=== PATIENT | female | born 1945 | race Caucasian/White ===

== ENCOUNTER 2018-02-01 10:46 | Observation (INO) | payer BC, MEDICARE ==
--- NOTE | 2018-02-01 11:31 | ED ---
General Adult HPI - General Chief complaint: Chest Pain Stated complaint: Chest Pain Source: patient Mode of arrival: wheelchair - History of Present Illness Initial comments: Dictation was produced using [employer] dictation software. please excuse any grammatical, word or spelling errors. Chief Complaint: 72-year-old female past medical history of coronary artery disease, dyslipidemia, hypertension presents after episode of chest pain today. History of Present Illness: Patient states she was exerting herself. 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 She was walking when she began feeling pain in her legs. She did experience severe pain in her chest that was crushing in nature. She states that she also became short of breath and experienced diaphoresis pressure taken aspirin and nitroglycerin with improvement of symptoms. Patient also had a similar but milder episode 2 weeks ago. Patient does have cardiac history. She states that she had Holter monitor for several days for concerns of tachycardia dysrhythmia however she said her Holter monitor was negative. The ROS documented in this emergency department record has been reviewed and confirmed by me. Those systems with pertinent positive or negative responses have been documented in the HPI. All other systems are other negative and/or noncontributory. - Related Data Home Medications Medication Instructions Recorded Confirmed Albuterol Sulfate [Proair Hfa] 2 puff INHALATION RT-Q6H PRN 02/01/18 02/01/18 Aspirin EC [Ecotrin] 325 mg PO DAILY PRN 02/01/18 02/01/18 Aspirin EC [Ecotrin] 325 mg PO HS 02/01/18 02/01/18 Losartan/Hydrochlorothiazide 1 tab PO HS 02/01/18 02/01/18 [Losartan-Hctz 100-25 mg Tab] Metoprolol Succinate [Toprol Xl] 100 mg PO HS 02/01/18 02/01/18 Nitroglycerin Sl Tabs [Nitrostat] 0.4 mg SUBLINGUAL Q5M PRN 02/01/18 02/01/18 Allergies Allergy/AdvReac Type Severity Reaction Status Date / Time Latex, Natural Rubber Allergy Rash/Hives Verified 02/01/18 11:56 Review of Systems ROS Statement: Those systems with pertinent positive or pertinent negative responses have been documented in the HPI. ROS Other: All systems not noted in ROS Statement are negative. Past Medical History Past Medical History: Coronary Artery Disease (CAD), Hyperlipidemia, Hypertension History of Any Multi-Drug Resistant Organisms: None Reported Additional Past Surgical History / Comment(s): CAROTID RIGHT SIDE, BRIDGE VASCULAR 2004 Past Psychological History: No Psychological Hx Reported Smoking Status: Former smoker Past Alcohol Use History: Occasional Past Drug Use History: None Reported General Exam - General Exam Comments Initial Comments: PHYSICAL EXAM: General Impression: Alert and oriented x3, not in acute distress HEENT: Normocephalic atraumatic, extra-ocular movements intact, pupils equal and reactive to light bilaterally, mucous membranes moist. Cardiovascular: Heart regular rate and rhythm, S1&S2 audible, no murmurs, rubs or gallops Chest: Lungs clear to auscultation bilaterally, no rhonchi, no wheeze, no rales Abdomen: Bowel sounds present, abdomen soft, non-tender, non-distended, no organomegaly Musculoskeletal: Pulses present and equal in all extremities, no peripheral edema Motor: Power 5/5 bilaterally, no focal deficits noted Neurological: CN II-XII grossly intact, no focal motor or sensory deficits noted Skin: Intact with no visualized rashes Psych: Normal affect and mood Course Vital Signs 02/01/18 02/01/18 02/01/18 10:49 12:00 13:00 Temperature 98.4 F Pulse Rate 90 74 72 Respiratory 18 20 20 Rate Blood Pressure 187/84 167/72 182/72 O2 Sat by Pulse 96 99 99 Oximetry Medical Decision Making - Medical Decision Making ED course: 72-year-old female with clinical presentation concerning for acute coronary syndrome. Signs upon arrival shows blood pressure 187/84. Patient had concerning history of present illness. Chest pain was also relieved with nitroglycerin and aspirin.Laboratory evaluation obtained per it CBC unremarkable , coag panel unremarkable, chem panel is negative. Cardiac enzymes are negative. Chest x-ray shows no acute processes . Clinical presentation strongly suspicious for acute coronary syndrome. We'll start patient on heparin. Patient be admitted to selective care on heparin drip. EKG interpretation: Ventricular rate 87. No MI prolongation, no QTC prolongation , no ST or T-wave changes noted. Overall, this EKG is unremarkable - Lab Data Result diagrams: 02/01/18 11:00 02/01/18 11:00 Lab Results 02/01/18 02/01/18 02/01/18 Range/Units 11:00 11:00 11:00 WBC 8.6 (3.8-10.6) k/uL RBC 4.82 (3.80-5.40) m/uL Hgb 13.6 (11.4-16.0) gm/dL Hct 42.6 (34.0-46.0) % MCV 88.2 (80.0-100.0) fL MCH 28.2 (25.0-35.0) pg MCHC 32.0 (31.0-37.0) g/dL RDW 13.0 (11.5-15.5) % Plt Count 380 (150-450) k/uL Neutrophils % 66 % Lymphocytes % 24 % Monocytes % 5 % Eosinophils % 3 % Basophils % 1 % Neutrophils # 5.7 (1.3-7.7) k/uL Lymphocytes # 2.1 (1.0-4.8) k/uL Monocytes # 0.5 (0-1.0) k/uL Eosinophils # 0.2 (0-0.7) k/uL Basophils # 0.1 (0-0.2) k/uL PT (9.0-12.0) sec INR (<1.2) APTT (22.0-30.0) sec Sodium 141 (137-145) mmol/L Potassium 4.2 (3.5-5.1) mmol/L Chloride 102 (98-107) mmol/L Carbon Dioxide 28 (22-30) mmol/L Anion Gap 11 mmol/L BUN 16 (7-17) mg/dL Creatinine 0.80 (0.52-1.04) mg/dL Est GFR (CKD-EPI)AfAm 85 (>60 ml/min/1.73 sqM) Est GFR (CKD-EPI)NonAf 74 (>60 ml/min/1.73 sqM) Glucose 105 H (74-99) mg/dL Calcium 9.5 (8.4-10.2) mg/dL Magnesium 2.0 (1.6-2.3) mg/dL Total Bilirubin 0.7 (0.2-1.3) mg/dL AST 27 (14-36) U/L ALT 27 (9-52) U/L Alkaline Phosphatase 72 (38-126) U/L Total Creatine Kinase 121 (30-135) U/L CK-MB (CK-2) 1.1 (0.0-2.4) ng/mL CK-MB (CK-2) Rel Index 0.9 Troponin I <0.012 (0.000-0.034) ng/mL Total Protein 7.9 (6.3-8.2) g/dL Albumin 4.3 (3.5-5.0) g/dL 02/01/18 Range/Units 11:00 WBC (3.8-10.6) k/uL RBC (3.80-5.40) m/uL Hgb (11.4-16.0) gm/dL Hct (34.0-46.0) % MCV (80.0-100.0) fL MCH (25.0-35.0) pg MCHC (31.0-37.0) g/dL RDW (11.5-15.5) % Plt Count (150-450) k/uL Neutrophils % % Lymphocytes % % Monocytes % % Eosinophils % % Basophils % % Neutrophils # (1.3-7.7) k/uL Lymphocytes # (1.0-4.8) k/uL Monocytes # (0-1.0) k/uL Eosinophils # (0-0.7) k/uL Basophils # (0-0.2) k/uL PT 10.4 (9.0-12.0) sec INR 1.1 (<1.2) APTT 25.2 (22.0-30.0) sec Sodium (137-145) mmol/L Potassium (3.5-5.1) mmol/L Chloride (98-107) mmol/L Carbon Dioxide (22-30) mmol/L Anion Gap mmol/L BUN (7-17) mg/dL Creatinine (0.52-1.04) mg/dL Est GFR (CKD-EPI)AfAm (>60 ml/min/1.73 sqM) Est GFR (CKD-EPI)NonAf (>60 ml/min/1.73 sqM) Glucose (74-99) mg/dL Calcium (8.4-10.2) mg/dL Magnesium (1.6-2.3) mg/dL Total Bilirubin (0.2-1.3) mg/dL AST (14-36) U/L ALT (9-52) U/L Alkaline Phosphatase (38-126) U/L Total Creatine Kinase (30-135) U/L CK-MB (CK-2) (0.0-2.4) ng/mL CK-MB (CK-2) Rel Index Troponin I (0.000-0.034) ng/mL Total Protein (6.3-8.2) g/dL Albumin (3.5-5.0) g/dL Disposition Clinical Impression: ACS (acute coronary syndrome) Disposition: ADMITTED IP TO THIS HOSP Condition: Fair Referrals: Vaibhav Coleman Jr, [Primary Care Provider] - 1-2 days Decision Time: 13:43
[2018-02-01 11:34] LABS: Basophils # (A) 0.1 k/uL (0-0.2); Basophils % (A) 1 %; Eosinophils # (A) 0.2 k/uL (0-0.7); Eosinophils % (A) 3 %; HCT 42.6 % (34.0-46.0); HGB 13.6 gm/dL (11.4-16.0); Lymphocytes # (A) 2.1 k/uL (1.0-4.8); Lymphocytes % (A) 24 %; MCH 28.2 pg (25.0-35.0); MCV 88.2 fL (80.0-100.0); Mean Platelet Volume 6.3; Monocytes # (A) 0.5 k/uL (0-1.0); Monocytes % (A) 5 %; Neutrophils # (A) 5.7 k/uL (1.3-7.7); Neutrophils % (A) 66 %; Platelet Count 380 k/uL (150-450); RBC 4.82 m/uL (3.80-5.40); WBC 8.6 k/uL (3.8-10.6)
[2018-02-01 11:43] LABS: Albumin 4.3 g/dL (3.5-5.0); Calcium 9.5 mg/dL (8.4-10.2); Potassium 4.2 mmol/L (3.5-5.1); Total Bilirubin 0.7 mg/dL (0.2-1.3); Total Protein 7.9 g/dL (6.3-8.2)
[2018-02-01 11:54] LABS: Creatine Kinase 121 U/L (30-135)
[2018-02-01 12:07] LABS: Creatine Kinase MB 1.1 ng/mL (0.0-2.4); Troponin I <0.012 ng/mL (0.000-0.034)
--- NOTE | 2018-02-01 12:10 | XR ---
EXAMINATION TYPE: XR chest 2V DATE OF EXAM: 02/01/2018 COMPARISON: Chest x-ray October 19, 2011 HISTORY: Shortness of breath today per patient. Chest pain per order. TECHNIQUE: Frontal and lateral views of the chest are obtained. FINDINGS: There is improved inspiration on current study. There is chronic parenchymal change without suspicious new focal air space opacity, pleural effusion, or pneumothorax seen. Calcified 8 mm nodu le or granuloma lateral right upper lobe is redemonstrated. The cardiac silhouette size is within nor mal limits. Underlying scoliosis in the lumbar spine is present. Cholecystectomy clip is seen IMPRESSION: Improved inspiration without acute pulmonary process.
[2018-02-01 12:19] LABS: INR 1.1 (<1.2); Partial Thromboplastin Time 25.2 sec (22.0-30.0); Prothrombin Time 10.4 sec (9.0-12.0)
[2018-02-01] MEDS ORDERED: HEPARIN SODIUM,PORCINE 5,000 UNIT/ML 1 ML VIAL IV ONE (12:34)
[2018-02-01] MEDS ORDERED: HEPARIN SODIUM,PORCINE 5,000 UNIT/ML 1 ML VIAL IV PRN (12:34)
[2018-02-01] MEDS ORDERED: HEPARIN SOD,PORK IN 0.45% NACL 25,000 UNIT in 0.45% NACL 1 500ML.BAG IV SCH (12:45)
[2018-02-01] MEDS ORDERED: ALBUTEROL NEBULIZED 2.5 MG/3 ML INHALATION PRN (13:33)
[2018-02-01] MEDS ORDERED: NITROGLYCERIN SL TABS 0.4 MG TAB SUBLINGUAL PRN (13:33)
--- NOTE | 2018-02-01 13:33 | P.HPIM ---
History of Present Illness H&P Date: 02/01/18 Chief Complaint: Chest pain This is a pleasant 72-year-old white female, well-known to our practice. She describes an episode of chest pain possibly 2 weeks ago that was crushing pressure-like in quality. She said it lasted about a half hour on ON its own. She didn't have any nitroglycerin try. He informed me she had a stent and also has peripheral artery disease and a femorofemoral bypass. She sees Dr. Mendoza for cardiac care. She is not had a stress test was scheduled for several months ago. She came emergency room after having crushing chest pressure starting about 10 AM. In the emergency room the symptoms were relieved with nitroglycerin. He is complaining of minor headache now. She denies any significant shortness of breath, nausea, or vomiting. ER physician indicates no significant EKG changes. She is resting comfortably in the emergency room. Her and sister at bedside. Review of Systems All systems: negative Past Medical History Past Medical History: Coronary Artery Disease (CAD), Hyperlipidemia, Hypertension History of Any Multi-Drug Resistant Organisms: None Reported Additional Past Surgical History / Comment(s): Carotid endarterectomy, right, FEM-POP Bypass 2004 Past Psychological History: No Psychological Hx Reported Smoking Status: Former smoker Past Alcohol Use History: Occasional Past Drug Use History: None Reported Medications and Allergies Home Medications Medication Instructions Recorded Confirmed Type Albuterol Sulfate [Proair Hfa] 2 puff INHALATION RT-Q6H PRN 02/01/18 02/01/18 History Aspirin EC [Ecotrin] 325 mg PO DAILY PRN 02/01/18 02/01/18 History Aspirin EC [Ecotrin] 325 mg PO HS 02/01/18 02/01/18 History Losartan/Hydrochlorothiazide 1 tab PO HS 02/01/18 02/01/18 History [Losartan-Hctz 100-25 mg Tab] Metoprolol Succinate [Toprol Xl] 100 mg PO HS 02/01/18 02/01/18 History Nitroglycerin Sl Tabs [Nitrostat] 0.4 mg SUBLINGUAL Q5M PRN 02/01/18 02/01/18 History Allergies Allergy/AdvReac Type Severity Reaction Status Date / Time Latex, Natural Rubber Allergy Rash/Hives Verified 02/01/18 11:56 Physical Exam Vitals: Vital Signs Temp Pulse Resp BP Pulse Ox 02/01/18 13:00 72 20 182/72 99 02/01/18 12:00 74 20 167/72 99 02/01/18 10:49 98.4 F 90 18 187/84 96 Intake and Output 01/31/18 02/01/18 02/01/18 22:59 06:59 14:59 Other: Weight 92.986 kg GENERAL: Well-appearing, well-nourished and in no acute distress. sHe looks her age of 72. HEAD: Atraumatic, normocephalic. EYES: Pupils equal round and reactive to light, extraocular movements intact, sclera anicteric, conjunctiva are normal. ENT:nares patent, oropharynx clear without exudates. Moist mucous membranes. NECK: Normal range of motion, supple without lymphadenopathy or JVD, no thyromegaly LUNGS: Breath sounds clear to auscultation bilaterally and equal. No wheezes rales or rhonchi. HEART: Regular rate and rhythm without murmurs, rubs or gallops.S1S2 Normal ABDOMEN: Soft, nontender, normoactive bowel sounds. No guarding, no rebound. No masses appreciated. EXTREMITIES: Normal range of motion, no pitting or edema. No clubbing or cyanosis. NEUROLOGICAL: Cranial nerves II through XII grossly intact. Normal speech, normal gait. PSYCH: Normal mood, normal affect. SKIN: Warm, Dry, normal turgor, no rashes or lesions noted. Results CBC & Chem 7: 02/01/18 11:00 02/01/18 11:00 Labs: Abnormal Lab Results - Last 24 Hours (Table) 02/01/18 Range/Units 11:00 Glucose 105 H (74-99) mg/dL Thrombosis Risk Factor Assmnt - DVT/VTE Prophylaxis DVT/VTE Prophylaxis: Pharmacologic Prophylaxis ordered (IV heparin drip ordered by emergency room physician) Assessment and Plan (1) Unstable angina Current Visit: Yes Status: Acute Code(s): I20.0 - UNSTABLE ANGINA SNOMED Code(s): 0025892 (2) Chest pain Current Visit: Yes Status: Acute Code(s): R07.9 - CHEST PAIN, UNSPECIFIED SNOMED Code(s): 06303182 (3) Coronary arteriosclerosis Current Visit: Yes Status: Acute Code(s): I25.10 - ATHSCL HEART DISEASE OF [place] CORONARY ARTERY W/O ANG PCTRS SNOMED Code(s): 68957181 (4) H/O carotid endarterectomy Current Visit: Yes Status: Acute Code(s): Z98.890 - OTHER SPECIFIED POSTPROCEDURAL STATES SNOMED Code(s): 595138653 (5) History of femoropopliteal bypass Current Visit: Yes Status: Acute Code(s): Z98.890 - OTHER SPECIFIED POSTPROCEDURAL STATES SNOMED Code(s): 209363373 (6) Hypertension Current Visit: Yes Status: Acute Code(s): I10 - ESSENTIAL (PRIMARY) HYPERTENSION SNOMED Code(s): 72421615 (7) Hyperlipidemia Current Visit: Yes Status: Acute Code(s): E78.5 - HYPERLIPIDEMIA, UNSPECIFIED SNOMED Code(s): 05732938 Plan: I will consult cardiology for stress test versus cardiac catheterization. Serial CPKs and troponins. She will remain on heparin drip per the ER physician. She will be reevaluated in the next 24 hours, depending on her laboratory studies and symptoms.
[2018-02-01] MEDS ORDERED: ASPIRIN 81 MG PO STA (13:35)
[2018-02-01] MEDS ORDERED: SODIUM CHLORIDE 0.9% 1,000 ML IV STA (13:35)
[2018-02-01] MEDS ORDERED: NALOXONE 0.4 MG/ML 1 ML VIAL IV PRN (13:39)
[2018-02-01 19:16] LABS: Creatine Kinase MB 1.1 ng/mL (0.0-2.4); Troponin I 0.02 ng/mL (0.000-0.034)
[2018-02-01] MEDS ORDERED: ACETAMINOPHEN TAB 325 MG TAB PO STA (19:59)
[2018-02-01] MEDS: LOSARTAN-HCTZ 50-12.5 MG 1 EACH TAB PO SCH (20:08)
[2018-02-01] MEDS: METOPROLOL SUCCINATE (ER) 100 MG TAB.ER.24H PO SCH (20:08)
[2018-02-01 23:09] LABS: Creatine Kinase MB 0.9 ng/mL (0.0-2.4); Troponin I 0.012 ng/mL (0.000-0.034)
[2018-02-02 02:54] LABS: Cholesterol 203 mg/dL (<200); HDL Cholesterol 46 mg/dL (40-60); LDL Cholesterol,Calculated 135 mg/dL (0-99); Triglycerides 109 mg/dL (<150)
--- NOTE | 2018-02-02 09:24 | P.CRDCN ---
History of Present Illness History of present illness: This is Dr. Chahal dictating a consult on this patient The patient was interviewed and examined by me IMPRESSION / ASSESSMENT: Recurrent palpitations Diagnosed with atrial fibrillation but no clear-cut ECG confirmation Bone Diabetes Hypertension Dyslipidemia Carotid artery disease significant, status post endarterectomy, vision refusing statins all along Peripheral vascular disease, patient refusing statins PLAN: Detailed discussion with the patient regarding the following #1. I would definitely consider implantation of a loop monitor to diagnosed atrial fibrillation. If she has atrial fibrillation then she should be anticoagulated with either Coumadin or one of the new agents 2. Statin therapy to get her LDL closer to 50 mg per deciliter 3. Outpatient cardiac evaluation with Dr. Mendoza whose primary project systems engineer 4. 2 baby aspirins instead of a full aspirin Continue antihypertensive therapy 2-D echo and Doppler study today Her sister wants her to have a loop monitor while she is in the hospital HPI Patient started experiencing pain in the right leg. She has known PVD. Subsequently she started experiencing palpitations and the discomfort from the leg started rising upwards into her belly and chest and she became very scared and came to the hospital. The episode of palpitations lasted longer than usual for about 10-15 minutes. She has a presumptive diagnosis of atrial fibrillation without any ECG confirmation, per the patient. I have seen her many years back and an event monitor was prescribed and this did not show any episodes of atrial fibrillation at that time Resting comfortably in bed no chest pain ROS: No fever chills or rigors, no cough, phlegm or expectoration, no nausea, vomiting or diarrhea, no hematuria, dysuria, no musculoskeletal complaints, no strokes or seizures, no skin lesions. EXAMINATION Afebrile 97.8F pulse rate in the 60s normal respirations blood pressure 101/59 and 153/65 mmHg Breath sounds are clear no rhonchi no crackles Heart sounds are normal normal S1 normal S2 regular Extended is warm no edema Abdomen soft REVIEW OF LABS, ECG Hemoglobin 13.6 H normal cardiac enzymes normal 3 LDL 135 to close to 203 Has refused to take statins because she has read up a lot of things about statins! Chest x-ray no pulmonary pathology reported by radiology Twelve-lead ECG shows sinus rhythm with normal cardiac intervals narrow QRS heart rate 87 beats a minute Past Medical History Past Medical History: Atrial Fibrillation, Asthma, Coronary Artery Disease (CAD) , CVA/TIA, Hyperlipidemia, Hypertension, Osteoarthritis (OA), Pneumonia, Vascular Disorder Additional Past Medical History / Comment(s): PAD, totally occluded L caratid artery-had L caratid endartectomy done twice and R leg femoral bypass, chronic low back pain and R leg pain with ambulation, scoliosis, recent R toe fracture and tendons damage across R foot, R ear skin cancer removed, gout bilateral feet , hemorrhoids, hypoglycemia. History of Any Multi-Drug Resistant Organisms: None Reported Past Surgical History: Appendectomy, Cholecystectomy Additional Past Surgical History / Comment(s): R caratid endartectomy done twice , R femoral bypass, PCI with stent to LAD, colonoscopy, R ear skin cancer removal. Past Anesthesia/Blood Transfusion Reactions: Motion Sickness Smoking Status: Former smoker - Past Family History Father Additional Family Medical History / Comment(s): Father of ALS at the age of 67yrs. Mother Family Medical History: Congestive Heart Failure (CHF), Myocardial Infarction ( AR) Additional Family Medical History / Comment(s): Mother of a AR at the age of 71yrs. Medications and Allergies Home Medications Medication Instructions Recorded Confirmed Type Albuterol Sulfate [Proair Hfa] 2 puff INHALATION RT-Q6H PRN 02/01/18 02/01/18 History Aspirin EC [Ecotrin] 325 mg PO DAILY PRN 02/01/18 02/01/18 History Aspirin EC [Ecotrin] 325 mg PO HS 02/01/18 02/01/18 History Losartan/Hydrochlorothiazide 1 tab PO HS 02/01/18 02/01/18 History [Losartan-Hctz 100-25 mg Tab] Metoprolol Succinate [Toprol Xl] 100 mg PO HS 02/01/18 02/01/18 History Nitroglycerin Sl Tabs [Nitrostat] 0.4 mg SUBLINGUAL Q5M PRN 02/01/18 02/01/18 History Allergies Allergy/AdvReac Type Severity Reaction Status Date / Time Latex, Natural Rubber Allergy Rash/Hives Verified 02/01/18 11:56 Physical Exam Vitals: Vital Signs Temp Pulse Pulse Resp BP BP Pulse Ox 02/02/18 04:00 97.8 F 67 16 153/65 97 02/02/18 00:00 18 02/01/18 23:59 98.4 F 62 18 101/59 95 02/01/18 19:58 18 02/01/18 19:35 98.6 F 75 18 134/77 94 L 02/01/18 18:11 98.0 F 77 18 156/74 93 L 02/01/18 16:00 78 18 02/01/18 15:15 97.6 F 78 18 190/82 97 02/01/18 14:56 98.3 F 77 18 156/67 100 02/01/18 13:00 72 20 182/72 99 02/01/18 12:00 74 20 167/72 99 02/01/18 10:49 98.4 F 90 18 187/84 96 Intake and Output 02/01/18 02/02/18 02/02/18 22:59 06:59 14:59 Intake Total 551 550 Balance 551 550 Intake: IV 210 550 Heparin Sod,Pork in 0.45% 60 NaCl 25,000 unit In 0.45 % NaCl 1 500ml.bag @ 10. 75 UNITS/KG/HR 19.99 mls/ hr IV .Q24H [facility] Rx#: [id number] Sodium Chloride 0.9% 1, 150 550 000 ml @ 50 mls/hr IV . Q20H [facility] Rx#:[id number] Intake, IV Titration 141 Amount Heparin Sod,Pork in 0.45% 141 NaCl 25,000 unit In 0.45 % NaCl 1 500ml.bag @ 10. 75 UNITS/KG/HR 19.99 mls/ hr IV .Q24H [facility] Rx#: [id number] Oral 200 Other: Voiding Method Toilet Toilet # Voids 2 2 Weight 94.5 kg Results 02/01/18 11:00 02/01/18 11:00 Cardiac Enzymes 02/01/18 02/01/18 02/01/18 Range/Units 11:00 11:00 18:00 AST 27 (14-36) U/L CK-MB (CK-2) 1.1 1.1 (0.0-2.4) ng/mL Troponin I <0.012 0.020 (0.000-0.034) ng/mL 02/01/18 Range/Units 22:20 AST (14-36) U/L CK-MB (CK-2) 0.9 (0.0-2.4) ng/mL Troponin I 0.012 (0.000-0.034) ng/mL Coagulation 02/01/18 02/01/18 02/02/18 Range/Units 11:00 18:00 02:09 PT 10.4 (9.0-12.0) sec APTT 25.2 40.5 H 61.2 H (22.0-30.0) sec Lipids 02/02/18 Range/Units 02:09 Triglycerides 109 (<150) mg/dL Cholesterol 203 H (<200) mg/dL HDL Cholesterol 46 (40-60) mg/dL CBC 02/01/18 Range/Units 11:00 WBC 8.6 (3.8-10.6) k/uL RBC 4.82 (3.80-5.40) m/uL Hgb 13.6 (11.4-16.0) gm/dL Hct 42.6 (34.0-46.0) % Plt Count 380 (150-450) k/uL Comprehensive Metabolic Panel 02/01/18 Range/Units 11:00 Sodium 141 (137-145) mmol/L Potassium 4.2 (3.5-5.1) mmol/L Chloride 102 (98-107) mmol/L Carbon Dioxide 28 (22-30) mmol/L BUN 16 (7-17) mg/dL Creatinine 0.80 (0.52-1.04) mg/dL Glucose 105 H (74-99) mg/dL Calcium 9.5 (8.4-10.2) mg/dL AST 27 (14-36) U/L ALT 27 (9-52) U/L Alkaline Phosphatase 72 (38-126) U/L Total Protein 7.9 (6.3-8.2) g/dL Albumin 4.3 (3.5-5.0) g/dL Current Medications Generic Name Dose Route Start Last Admin Trade Name Freq PRN Reason Stop Dose Admin Albuterol Sulfate 2.5 mg 02/01/18 13:33 Ventolin Nebulized INHALATION RT-Q6H PRN Shortness Of Breath HCTZ/Losartan Potassium 2 each 02/01/18 21:00 02/01/18 20:08 Hyzaar 50-12.5 PO 2 each HS [facility] Administration Heparin Sodium (Porcine) 0 unit 02/01/18 12:34 02/01/18 20:11 Heparin IV 2,350 unit PER PROTOCOL PRN Administration Low PTT Protocol Heparin Sodium/Sodium Chloride 500 mls @ 19.99 mls/hr 02/01/18 12:45 20:11 25,000 unit/ Sodium Chloride IV 12.75 units/kg/hr .Q24H [facility] 23.71 mls/hr Titration Protocol 10.75 UNITS/KG/HR Sodium Chloride 1,000 mls @ 50 mls/hr 02/01/18 13:35 02/01/18 16:16 Saline 0.9% IV 02/02/18 09:34 50 mls/hr .Q20H [facility] Administration Metoprolol Succinate 100 mg 02/01/18 21:00 02/01/18 20:08 Toprol Xl PO 100 mg HS [facility] Administration Naloxone HCl 0.2 mg 02/01/18 13:39 Narcan IV Q2M PRN Opioid Reversal Nitroglycerin 0.4 mg 02/01/18 13:33 Nitrostat SUBLINGUAL Q5M PRN Chest Pain Intake and Output 02/01/18 02/02/18 02/02/18 22:59 06:59 14:59 Intake Total 551 550 Balance 551 550 Intake: IV 210 550 Heparin Sod,Pork in 0.45% 60 NaCl 25,000 unit In 0.45 % NaCl 1 500ml.bag @ 10. 75 UNITS/KG/HR 19.99 mls/ hr IV .Q24H [facility] Rx#: [id number] Sodium Chloride 0.9% 1, 150 550 000 ml @ 50 mls/hr IV . Q20H [facility] Rx#:[id number] Intake, IV Titration 141 Amount Heparin Sod,Pork in 0.45% 141 NaCl 25,000 unit In 0.45 % NaCl 1 500ml.bag @ 10. 75 UNITS/KG/HR 19.99 mls/ hr IV .Q24H [facility] Rx#: [id number] Oral 200 Other: Voiding Method Toilet Toilet # Voids 2 2 Weight 94.5 kg 02/01/18 11:00 02/01/18 11:00
--- NOTE | 2018-02-02 11:10 | ECHOF ---
Referral Reason:Acute Coronary Syndrome MEASUREMENTS -------- HEIGHT: 172.7 cm WEIGHT: 93.0 kg BP: 156/67 RVIDd: 2.3 cm (< 3.3) IVSd: 1.0 cm (0.6 - 1.1) LVIDd: 3.6 cm (3.9 - 5.3) LVPWd: 1.0 cm (0.6 - 1.1) IVSs: 1.3 cm LVIDs: 2.5 cm LVPWs: 1.3 cm LAESV Index (A-L): 27.72 ml/m Ao Diam: 3.1 cm (2.0 - 3.7) AV Cusp: 1.0 cm (1.5 - 2.6) LA Diam: 1.9 cm (2.7 - 3.8) MV E Franky: 0.92 m/s MV DecT: 321 ms MV A Franky: 1.12 m/s MV E/A Ratio: 0.82 RAP: 5.00 mmHg RVSP: 12.64 mmHg MV EF SLOPE: 35.60 mm/s (70 - 150) MV EXCURSION: 1.29 cm (> 18.000) FINDINGS -------- Sinus rhythm. This was a technically adequate study. The left ventricular size is normal. Left ventricular wall thickness is normal. Overall left vent ricular systolic function is normal with, an EF between 55 - 60 %. The right ventricle is normal in size and function. Normal LA size by volume 22+/-6 ml/m2. The right atrium is normal in size. There is mild aortic valve sclerosis. There is no evidence of aortic regurgitation. There is no e vidence of aortic stenosis. The mitral valve leaflets are mildly thickened. There is trace to mild mitral regurgitation. Trace tricuspid regurgitation present. Right ventricular systolic pressure is normal at < 35 mmHg. There is no evidence of pulmonary hypertension. The pulmonic valve was not well visualized. The aortic root size is normal. Normal inferior vena cava with normal inspiratory collapse consistent with estimated right atrial pre ssure of 5 mmHg. There is no pericardial effusion. CONCLUSIONS -------- 1. Sinus rhythm. 2. This was a technically adequate study. 3. The left ventricular size is normal. 4. Left ventricular wall thickness is normal. 5. Overall left ventricular systolic function is normal with, an EF between 55 - 60 %. 6. Normal LA size by volume 22+/-6 ml/m2. 7. There is mild aortic valve sclerosis. 8. The mitral valve leaflets are mildly thickened. 9. There is trace to mild mitral regurgitation. 10. Trace tricuspid regurgitation present. 11. Right ventricular systolic pressure is normal at < 35 mmHg. 12. There is no evidence of pulmonary hypertension. 13. The pulmonic valve was not well visualized. 14. The aortic root size is normal. 15. There is no pericardial effusion. MAIL DELIVERY SUPERVISOR: Eric Ashraf RDCS
--- NOTE | 2018-02-02 17:15 | P.PN ---
Subjective This is a pleasant 72-year-old white female, well-known to our practice. She describes an episode of chest pain possibly 2 weeks ago that was crushing pressure-like in quality. She said it lasted about a half hour on ON its own. She didn't have any nitroglycerin try. He informed me she had a stent and also has peripheral artery disease and a femorofemoral bypass. She sees Dr. Mendoza for cardiac care. She is not had a stress test was scheduled for several months ago. She came emergency room after having crushing chest pressure starting about 10 AM. In the emergency room the symptoms were relieved with nitroglycerin. He is complaining of minor headache now. She denies any significant shortness of breath, nausea, or vomiting. ER physician indicates no significant EKG changes. She is resting comfortably in the emergency room. Her and sister at bedside. 02/02/2018: patient has been seen by cardiology. She is chest pain free since admission. Tolerating diet. No SOB, Nausea or vomting. Objective - Vital Signs Vital signs: Vital Signs Temp 98.3 F 02/02/18 16:25 Pulse 70 02/02/18 16:25 Resp 16 02/02/18 16:25 BP 146/74 02/02/18 16:25 Pulse Ox 96 02/02/18 16:25 Intake & Output 02/01/18 02/02/18 02/02/18 18:59 06:59 18:59 Intake Total 200 901 Balance 200 901 Weight 94.5 kg Intake: IV 760 Heparin Sod,Pork in 0.45% 60 NaCl 25,000 unit In 0.45 % NaCl 1 500ml.bag @ 10. 75 UNITS/KG/HR 19.99 mls/ hr IV .Q24H CHAD Rx#: [id number] Sodium Chloride 0.9% 1, 700 000 ml @ 50 mls/hr IV . Q20H STA Rx#:[id number] Intake, IV Titration 141 Amount Heparin Sod,Pork in 0.45% 141 NaCl 25,000 unit In 0.45 % NaCl 1 500ml.bag @ 10. 75 UNITS/KG/HR 19.99 mls/ hr IV .Q24H CHAD Rx#: [id number] Oral 200 Other: Voiding Method Toilet Toilet Toilet # Voids 1 2 1 - Exam GENERAL: Well-appearing, well-nourished and in no acute distress. sHe looks her age of 72. NECK: Normal range of motion, supple without lymphadenopathy or JVD, no thyromegaly LUNGS: Breath sounds clear to auscultation bilaterally and equal. No wheezes rales or rhonchi. HEART: Regular rate and rhythm without murmurs, rubs or gallops.S1S2 Normal ABDOMEN: Soft, nontender, normoactive bowel sounds. No guarding, no rebound. No masses appreciated. EXTREMITIES: Normal range of motion, no pitting or edema. No clubbing or cyanosis. SKIN: Warm, Dry, normal turgor, no rashes or lesions noted. - Labs CBC & Chem 7: 02/01/18 11:00 02/01/18 11:00 Labs: Abnormal Lab Results - Last 24 Hours (Table) 02/01/18 02/02/18 02/02/18 Range/Units 18:00 02:09 02:09 APTT 40.5 H 61.2 H (22.0-30.0) sec Cholesterol 203 H (<200) mg/dL LDL Cholesterol, Calc 135 H (0-99) mg/dL Assessment and Plan (1) Unstable angina Current Visit: Yes Status: Acute Code(s): I20.0 - UNSTABLE ANGINA SNOMED Code(s): 2293720 (2) Chest pain Current Visit: Yes Status: Acute Code(s): R07.9 - CHEST PAIN, UNSPECIFIED SNOMED Code(s): 88932566 (3) Coronary arteriosclerosis Current Visit: Yes Status: Acute Code(s): I25.10 - ATHSCL HEART DISEASE OF [place] CORONARY ARTERY W/O ANG PCTRS SNOMED Code(s): 66768059 (4) H/O carotid endarterectomy Current Visit: Yes Status: Acute Code(s): Z98.890 - OTHER SPECIFIED POSTPROCEDURAL STATES SNOMED Code(s): 848621927 (5) History of femoropopliteal bypass Current Visit: Yes Status: Acute Code(s): Z98.890 - OTHER SPECIFIED POSTPROCEDURAL STATES SNOMED Code(s): 926365328 (6) Hypertension Current Visit: Yes Status: Acute Code(s): I10 - ESSENTIAL (PRIMARY) HYPERTENSION SNOMED Code(s): 86464409 (7) Hyperlipidemia Current Visit: Yes Status: Acute Code(s): E78.5 - HYPERLIPIDEMIA, UNSPECIFIED SNOMED Code(s): 10224610 Plan: Serial CPKs and troponins are negative. Cardiology note reviewed. WIll wait on Loop recorder implantation sunday. Recheck labs in am. She will be reevaluated in the next 24 hrs
[2018-02-02] MEDS: METOPROLOL SUCCINATE (ER) 100 MG TAB.ER.24H PO SCH ×2 (19:49→19:54)
[2018-02-02] MEDS: LOSARTAN-HCTZ 50-12.5 MG 1 EACH TAB PO SCH ×2 (19:49→19:53)
[2018-02-03 05:55] LABS: Basophils # (A) 0.1 k/uL (0-0.2); Basophils % (A) 1 %; Eosinophils # (A) 0.3 k/uL (0-0.7); Eosinophils % (A) 3 %; HCT 40.7 % (34.0-46.0); Lymphocytes # (A) 2.4 k/uL (1.0-4.8); Lymphocytes % (A) 30 %; MCH 28.8 pg (25.0-35.0); MCV 90.1 fL (80.0-100.0); Mean Platelet Volume 6.1; Monocytes # (A) 0.5 k/uL (0-1.0); Monocytes % (A) 6 %; Neutrophils # (A) 4.7 k/uL (1.3-7.7); Neutrophils % (A) 58 %; Platelet Count 347 k/uL (150-450); RBC 4.52 m/uL (3.80-5.40)
[2018-02-03 06:08] LABS: Calcium 9.4 mg/dL (8.4-10.2); Potassium 4.6 mmol/L (3.5-5.1)
[2018-02-03] MEDS ORDERED: ACETAMINOPHEN TAB 325 MG TAB PO PRN ×2 (07:06→07:07)
[2018-02-03] MEDS: ASPIRIN 81 MG PO SCH (07:28)
--- NOTE | 2018-02-03 11:28 | P.PN ---
Subjective Principal diagnosis: Patient is doing well. She denies any chest discomfort dizziness lightheadedness or palpitations Afebrile 98.3F pulse rate in the 60s and 70s, blood pressure 154/67 mmHg Normal heart sounds Normal breath sounds Increased BMI noted Abdomen soft Extended is warm Impression Recurrent palpitations yet undiagnosed Hypertension Peripheral vascular disease Carotid artery disease Refusing statins in the past Suggest Start statins today atorvastatin 40 mg by mouth daily since she has severe carotid artery disease has already undergone carotid endarterectomy Continue baby aspirin If her blood pressure is not well controlled by tomorrow morning then we will add amlodipine tomorrow Implantation of loop monitor tomorrow Patient made breakfast tomorrow Objective - Vital Signs Vital signs: Vital Signs Temp 98.3 F 02/03/18 08:28 Pulse 75 02/03/18 08:28 Resp 18 02/03/18 08:28 BP 154/67 02/03/18 08:28 Pulse Ox 96 02/03/18 08:28 Intake & Output 02/02/18 02/03/18 02/03/18 18:59 06:59 18:59 Intake Total 240 500 250 Balance 240 500 250 Weight 93.5 kg Intake: Oral 240 500 250 Other: Voiding Method Toilet Toilet Toilet # Voids 1 2 - Labs CBC & Chem 7: 02/03/18 05:29 02/03/18 05:29 Labs: Abnormal Lab Results - Last 24 Hours (Table) 02/03/18 Range/Units 05:29 Glucose 101 H (74-99) mg/dL
--- NOTE | 2018-02-03 17:23 | P.PN ---
Subjective This is a pleasant 72-year-old white female, well-known to our practice. She describes an episode of chest pain possibly 2 weeks ago that was crushing pressure-like in quality. She said it lasted about a half hour on ON its own. She didn't have any nitroglycerin try. He informed me she had a stent and also has peripheral artery disease and a femorofemoral bypass. She sees Dr. Mendoza for cardiac care. She is not had a stress test was scheduled for several months ago. She came emergency room after having crushing chest pressure starting about 10 AM. In the emergency room the symptoms were relieved with nitroglycerin. He is complaining of minor headache now. She denies any significant shortness of breath, nausea, or vomiting. ER physician indicates no significant EKG changes. She is resting comfortably in the emergency room. Her and sister at bedside. 02/02/2018: patient has been seen by cardiology. She is chest pain free since admission. Tolerating diet. No SOB, Nausea or vomting. 02/03/2018 She is chest pain free since admission. Tolerating diet. No SOB, Nausea or vomting. Recorder placement is planned for tomorrow. She has no complaints today and her is at bedside. Objective - Vital Signs Vital signs: Vital Signs Temp 98.4 F 02/03/18 16:00 Pulse 60 02/03/18 16:00 Resp 16 02/03/18 16:00 BP 147/74 02/03/18 16:00 Pulse Ox 96 02/03/18 16:00 Intake & Output 02/02/18 02/03/18 02/03/18 18:59 06:59 18:59 Intake Total 240 500 250 Balance 240 500 250 Weight 93.5 kg Intake: Oral 240 500 250 Other: Voiding Method Toilet Toilet Toilet # Voids 1 2 - Exam GENERAL: Well-appearing, well-nourished and in no acute distress. sHe looks her age of 72. NECK: Normal range of motion, supple without lymphadenopathy or JVD, no thyromegaly LUNGS: Breath sounds clear to auscultation bilaterally and equal. No wheezes rales or rhonchi. HEART: Regular rate and rhythm without murmurs, rubs or gallops.S1S2 Normal ABDOMEN: Soft, nontender, normoactive bowel sounds. No guarding, no rebound. No masses appreciated. EXTREMITIES: Normal range of motion, no pitting or edema. No clubbing or cyanosis. SKIN: Warm, Dry, normal turgor, no rashes or lesions noted. - Labs CBC & Chem 7: 02/03/18 05:29 02/03/18 05:29 Labs: Abnormal Lab Results - Last 24 Hours (Table) 02/03/18 Range/Units 05:29 Glucose 101 H (74-99) mg/dL Assessment and Plan (1) Unstable angina Current Visit: Yes Status: Acute Code(s): I20.0 - UNSTABLE ANGINA SNOMED Code(s): 0077175 (2) Chest pain Current Visit: Yes Status: Acute Code(s): R07.9 - CHEST PAIN, UNSPECIFIED SNOMED Code(s): 53391272 (3) Coronary arteriosclerosis Current Visit: Yes Status: Acute Code(s): I25.10 - ATHSCL HEART DISEASE OF [place] CORONARY ARTERY W/O ANG PCTRS SNOMED Code(s): 09264634 (4) H/O carotid endarterectomy Current Visit: Yes Status: Acute Code(s): Z98.890 - OTHER SPECIFIED POSTPROCEDURAL STATES SNOMED Code(s): 191160160 (5) History of femoropopliteal bypass Current Visit: Yes Status: Acute Code(s): Z98.890 - OTHER SPECIFIED POSTPROCEDURAL STATES SNOMED Code(s): 366243393 (6) Hypertension Current Visit: Yes Status: Acute Code(s): I10 - ESSENTIAL (PRIMARY) HYPERTENSION SNOMED Code(s): 92001179 (7) Hyperlipidemia Current Visit: Yes Status: Acute Code(s): E78.5 - HYPERLIPIDEMIA, UNSPECIFIED SNOMED Code(s): 93463828 Plan: Serial CPKs and troponins are negative. Cardiology note reviewed. WIll wait on Loop recorder implantation sunday.She will be reevaluated in the next 24 hrs
[2018-02-03] MEDS: METOPROLOL SUCCINATE (ER) 100 MG TAB.ER.24H PO SCH (20:45)
[2018-02-03] MEDS: LOSARTAN-HCTZ 50-12.5 MG 1 EACH TAB PO SCH (20:45)
[2018-02-03 21:12] VITALS: RESP 18
--- NOTE | 2018-02-04 10:25 | P.PN ---
Subjective Progress Note Date: 02/04/18 This is a pleasant 72-year-old white female, well-known to our practice. She describes an episode of chest pain possibly 2 weeks ago that was crushing pressure-like in quality. She said it lasted about a half hour on ON its own. She didn't have any nitroglycerin try. He informed me she had a stent and also has peripheral artery disease and a femorofemoral bypass. She sees Dr. Mendoza for cardiac care. She is not had a stress test was scheduled for several months ago. She came emergency room after having crushing chest pressure starting about 10 AM. In the emergency room the symptoms were relieved with nitroglycerin. He is complaining of minor headache now. She denies any significant shortness of breath, nausea, or vomiting. ER physician indicates no significant EKG changes. She is resting comfortably in the emergency room. Her and sister at bedside. 02/02/2018: patient has been seen by cardiology. She is chest pain free since admission. Tolerating diet. No SOB, Nausea or vomting. 02/03/2018 She is chest pain free since admission. Tolerating diet. No SOB, Nausea or vomting. Recorder placement is planned for tomorrow. She has no complaints today and her is at bedside. Above per Dr. Cuellar 02/04/2018 Patient seen and examined at the bedside. Patient is awake and alert. Reading a book. She is NPO this morning. Possible loop recorder placement this afternoon. Denies palpitations. Denies shortness of breath or cough. Denies chest pain or pressure. Denies nausea or vomiting. Vital signs are stable. Objective - Vital Signs Vital signs: Vital Signs Temp 97.7 F 02/04/18 07:40 Pulse 58 L 02/04/18 07:40 Resp 18 02/04/18 07:40 BP 146/74 02/04/18 07:40 Pulse Ox 96 02/04/18 07:40 Intake & Output 02/03/18 02/04/18 02/04/18 18:59 06:59 18:59 Intake Total 250 Balance 250 Intake: Oral 250 Other: Voiding Method Toilet Toilet Toilet # Voids 1 - Constitutional General appearance: Present: average body habitus - EENT Eyes: Present: dentition normal, normal appearance ENT: Present: hearing grossly normal - Neck Neck: Present: normal ROM - Respiratory Respiratory: bilateral: CTA, negative: rales, rhonchi, wheezing - Cardiovascular Rhythm: regular Heart sounds: normal: S1, S2 - Gastrointestinal General gastrointestinal: Present: normal bowel sounds - Integumentary Integumentary: Present: normal, normal turgor - Neurologic Neurologic: Present: CNII-XII intact - Musculoskeletal Musculoskeletal: Present: gait normal, strength equal bilaterally - Psychiatric Psychiatric: Present: A&O x's 3, appropriate affect, intact judgment & insight - Labs CBC & Chem 7: 02/03/18 05:29 02/03/18 05:29 Assessment and Plan Plan: ASSESSMENT: Recurrent palpitations Atrial fibrilliation per patient with no EKG confirmation Coronary artery disease with previous stent placement to the LAD Hyperlipidemia Hypertension Carotid artery disease with history of left carotid endarterectomy, previously refusing statin therapy PLAN: Cardiology on consult. Appreciate recommendations and input Possible loop recorder implantation today Statin therapy restarted per cardiology Patient to take 2 baby ASA daily instead of full strength ASA per cardiology Home meds as appropriate Monitor labs Monitor vital signs and address as appropriate Discharge planning: Patient to return home when stable Further recommendations pending patient's course Nurse practitioner note has been reviewed by physician. Signing provider agrees with the documented findings, assessment, and plan of care.
[2018-02-04] MEDS ORDERED: SODIUM CHLORIDE 0.9% 1,000 ML IV SCH (11:15)
[2018-02-04] MEDS ORDERED: ceFAZolin IN SWFI 2 GM/20 ML SYRINGE IVP STA (14:37)
[2018-02-04] MEDS ORDERED: SODIUM CHLORIDE 0.9% 250 ML IV ONE (14:54)
[2018-02-04] MEDS ORDERED: MIDAZOLAM 2 MG/2 ML VIAL ONE (14:57)
[2018-02-04] MEDS ORDERED: LIDOCAINE 1% INJ 10MG/ML (20 ML MDV) ONE (14:59)
[2018-02-04] MEDS ORDERED: MIDAZOLAM 2 MG/2 ML VIAL IV ONE (15:01)
[2018-02-04] MEDS ORDERED: LIDOCAINE 1% INJ 10MG/ML (20 ML MDV) SQ ONE (15:05)
--- NOTE | 2018-02-04 15:13 | P.PCN ---
Preoperative Diagnosis: Loop monitor implant Primary physicians: Dr. Cuellar Amusement Equipment Operator: Dr. Mendoza Indication: Recurrent palpitations symptomatic no diagnosis made only a few episodes in a year Patient was brought to the EP lab in a fasting state. Written informed consent was obtained prior to the procedure. The left pectoral area was prepped and draped per protocol. Intravenous antibiotic was administered preoperatively. A subcutaneous Loop monitor was implanted successfully and the wound was closed per protocol. The device was programmed to detect significant gen- arrhythmic and tachy-arrhythmic events, per protocol. Device and programming details: Atrial fibrillation detection programming Patient underwent EP procedure under conscious sedation/moderate sedation, monitoring of the level of consciousness and physiologic parameters including but not limited to vital signs and oxygenation. Patient tolerated the procedure well without any acute complications. Start time: 1502 Stop time: 1312
[2018-02-04 15:52] VITALS: BP 133/72; PULSE 93; TEMP 97.9
[2018-02-04] MEDS: ASPIRIN 81 MG PO SCH (16:22)
--- NOTE | 2018-02-05 15:03 | P.DS ---
Providers Date of admission: 02/01/18 13:51 Expected date of discharge: 02/04/18 Attending physician: Soy Cuellar Consults: 02/01/18 13:38 Consult Physician Routine Consulting Provider: Hollis Mendoza Consult Reason/Comments: Angina Do you want consulting provider notified?: Yes Primary care physician: [facility] Course: This is a pleasant 72-year-old white female, well-known to our practice. She describes an episode of chest pain possibly 2 weeks ago that was crushing pressure-like in quality. She said it lasted about a half hour on ON its own. She didn't have any nitroglycerin try. He informed me she had a stent and also has peripheral artery disease and a femorofemoral bypass. She sees Dr. Mendoza for cardiac care. She is not had a stress test was scheduled for several months ago. She came emergency room after having crushing chest pressure starting about 10 AM. In the emergency room the symptoms were relieved with nitroglycerin. He is complaining of minor headache now. She denies any significant shortness of breath, nausea, or vomiting. ER physician indicates no significant EKG changes. She is resting comfortably in the emergency room. Her and sister at bedside. 02/02/2018: patient has been seen by cardiology. She is chest pain free since admission. Tolerating diet. No SOB, Nausea or vomting. 02/03/2018 She is chest pain free since admission. Tolerating diet. No SOB, Nausea or vomting. Recorder placement is planned for tomorrow. She has no complaints today and her is at bedside. Above per Dr. Cuellar 02/04/2018 Patient seen and examined at the bedside. Patient is awake and alert. Reading a book. She is NPO this morning. Possible loop recorder placement this afternoon. Denies palpitations. Denies shortness of breath or cough. Denies chest pain or pressure. Denies nausea or vomiting. Vital signs are stable. The patient underwent loop recorder implantation by Dr. Chahal without complications. She was cleared for discharge from a cardiac standpoint after conscious sedation wore off. She was deemed stable for discharge by Dr. Coleman. DISCHARGE DIAGNOSIS: Recurrent palpitations, s/p loop recorder implantation Atrial fibrillation per patient with no EKG confirmation Coronary artery disease with previous stent placement to the LAD Hyperlipidemia Hypertension Carotid artery disease with history of left carotid endarterectomy, previously refusing statin therapy Nurse practitioner note has been reviewed by physician. Signing provider agrees with the documented findings, assessment, and plan of care. Patient Condition at Discharge: Stable Plan - Discharge Summary Discharge Rx Participant: No New Discharge Prescriptions: New Aspirin 162 mg PO DAILY #60 chew Continue Nitroglycerin Sl Tabs [Nitrostat] 0.4 mg SUBLINGUAL Q5M PRN PRN Reason: Chest Pain Metoprolol Succinate [Toprol Xl] 100 mg PO HS Losartan/Hydrochlorothiazide [Losartan-Hctz 100-25 mg Tab] 1 tab PO HS Albuterol Sulfate [Proair Hfa] 2 puff INHALATION RT-Q6H PRN PRN Reason: Shortness Of Breath Discontinued Aspirin EC [Ecotrin] 325 mg PO HS Aspirin EC [Ecotrin] 325 mg PO DAILY PRN PRN Reason: Pain Discharge Medication List Albuterol Sulfate [Proair Hfa] 2 puff INHALATION RT-Q6H PRN 02/01/18 [History] Losartan/Hydrochlorothiazide [Losartan-Hctz 100-25 mg Tab] 1 tab PO HS 02/01/18 [History] Metoprolol Succinate [Toprol Xl] 100 mg PO HS 02/01/18 [History] Nitroglycerin Sl Tabs [Nitrostat] 0.4 mg SUBLINGUAL Q5M PRN 02/01/18 [History] Aspirin 162 mg PO DAILY #60 chew 02/04/18 [Rx] Follow up Appointment(s)/Referral(s): Vaibhav Coleman Jr, DO [Primary Care Provider] - 1-2 days Hollis Mendoza MD [STAFF PHYSICIAN] - 02/11/18 2:00 pm Patient Instructions/Handouts: Angina (DC), Cardiac Loop Recorder Insertion ( PRE) Activity/Diet/Wound Care/Special Instructions: Keep wound dry for 5 days Device clinic suture removal in 5 days Patient may go home from a cardiac standpoint Discharge Disposition: HOME SELF-CARE
== END 2018-02-04 16:45 | disposition home or self-care (01) ==
LOC: EC 10:46 → 3OBS 13:51 → 6SEL 02-02 15:09 → 3OBS 02-03 08:27
PROVIDERS: ADMIT Family Medicine; ATTEND Family Medicine
DX: I25.110 Atherosclerotic heart disease of native coronary artery with unstable angina pectoris (principal); R00.2 Palpitations; I10 Essential (primary) hypertension; E11.51 Type 2 diabetes mellitus with diabetic peripheral angiopathy without gangrene; E78.5 Hyperlipidemia, unspecified; J45.909 Unspecified asthma, uncomplicated; M19.90 Unspecified osteoarthritis, unspecified site; M10.9 Gout, unspecified; Z95.5 Presence of coronary angioplasty implant and graft; Z91.040 Latex allergy status; Z79.82 Long term (current) use of aspirin; Z79.899 Other long term (current) drug therapy; Z95.828 Presence of other vascular implants and grafts; Z86.79 Personal history of other diseases of the circulatory system; Z87.891 Personal history of nicotine dependence; Z85.828 Personal history of other malignant neoplasm of skin; Z86.73 Personal history of transient ischemic attack (TIA), and cerebral infarction without residual deficits; Z87.01 Personal history of pneumonia (recurrent); Z90.49 Acquired absence of other specified parts of digestive tract; Z90.89 Acquired absence of other organs; Z82.49 Family history of ischemic heart disease and other diseases of the circulatory system; Z82.0 Family history of epilepsy and other diseases of the nervous system; Z53.20 Procedure and treatment not carried out because of patient's decision for unspecified reasons
CPT/HCPCS: 99152; 99285 ×2; 96365 ×2; 96366 ×5; 96376 ×3; 36415; 93005; 93306; 33282; 80061; 80053; 80048; 82550; 82553; 83735; 84484; 85025 ×2; 85610; 85730 ×2; 71046; G0378 ×4; C1764; J2250; J1644 ×2; J2001; J0690

== ENCOUNTER → 2018-09-24 | Outpatient (CLI) | payer MEDICARE ==
--- NOTE | 2018-09-24 14:55 | CT ---
EXAMINATION TYPE: CT brain wo con DATE OF EXAM: 09/24/2018 COMPARISON: None HISTORY: Postconcussional syndrome CT DLP: 1049 mGycm Automated exposure control for dose reduction was used. FINDINGS: The ventricular system is midline with no evidence of mass effect. Area of low-attenuation the right basal ganglia suggestive of remote lacunar infarction. There is low-attenuation within the white radha er bilaterally which is nonspecific but most typical remote microvascular ischemia. No acute hemorrhage. Calvarium intact. No midline shift. IMPRESSION: DEGENERATIVE AND NONSPECIFIC WHITE MATTER CHANGES MOST TYPICAL REMOTE MICROVASCULAR ISCHEMIA. ADDITIO SPEEDY THERE IS A FOCAL AREA OF LOW-ATTENUATION THE RIGHT BASAL GANGLIA SUGGESTIVE OF REMOTE LACUNAR I NFARCTION. FOLLOW-UP MRI SUGGESTED CLINICALLY WARRANTED.
--- NOTE | 2018-09-25 12:11 | XR ---
EXAMINATION TYPE: XR cervical spine limited DATE OF EXAM: 09/24/2018 COMPARISON: NONE HISTORY: Pain TECHNIQUE: 3 views submitted FINDINGS: There is multilevel mild to moderate degenerative disc disease with multilevel facet arthro najma. Prevertebral soft tissue structures within normal limits. Odontoid intact. Surgical clips are seen in the soft tissues of the neck. Calcifications may been the basis of atherosclerotic change of the carotid artery. Vascular stent seen involving the left lung apex. IMPRESSION: 1. Multilevel moderate degenerative disc disease with multilevel facet arthropathy. Suspect foraminal encroachment recommend correlation with MRI.
== END ==
LOC: RADCTMAIN 13:04
PROVIDERS: ATTEND Family Medicine
DX: H53.9 Unspecified visual disturbance (principal); F07.81 Postconcussional syndrome; M50.30 Other cervical disc degeneration, unspecified cervical region
CPT/HCPCS: 70450; 72040

== ENCOUNTER → 2019-01-21 | Outpatient (CLI) | payer MEDICARE ==
--- NOTE | 2019-01-21 21:05 | MR ---
EXAMINATION TYPE: MR brain wo/w con DATE OF EXAM: 01/21/2019 COMPARISON: CT brain September 24, 2018 HISTORY: Headache and post concussion syndrome. TECHNIQUE: Multiplanar, multisequence images of the brain and brainstem is performed without and with IV contras t, utilizing 9.5 mL intravenous Gadavist . FINDINGS: Diffusion weighted images demonstrate no evidence of a recent infarct or other diffusion ab normality. There is no recent extra-axial fluid collection. There is ventricular and sulcal prominen ce. There are scattered foci of T2 hyperintensity seen throughout the white matter bilaterally. These are nonspecific in appearance and distribution. Lesions are nonspecific in appearance and distributi on but are most likely on the basis of product of chronic small vessel ischemic change in patient of this age. Midline structures demonstrate normal morphology. The craniocervical junction appears within normal limits. Post contrast images demonstrate no abnormal enhancement. The dural venous sinuses appear pa tent. The visualized sinuses are clear and the globes are intact. IMPRESSION: There is mild to moderate diffuse cerebral atrophy and chronic small vessel ischemic morales ge appreciated. No suspicious enhancement noted.
== END | disposition home or self-care (01) ==
LOC: RADMRIMAIN 15:20
PROVIDERS: ATTEND Nurse Practitioner Women's Health
DX: I67.82 Cerebral ischemia (principal); G31.9 Degenerative disease of nervous system, unspecified
CPT/HCPCS: 70553; A9585

== ENCOUNTER → 2019-02-06 | Outpatient (CLI) | payer MEDICARE ==
[2019-02-06 10:27] LABS: Potassium 4.1 mmol/L (3.5-5.1)
== END | disposition home or self-care (01) ==
LOC: LABPAT 09:25
PROVIDERS: ATTEND Internal Medicine Cardiovascular Disease
DX: Z01.812 Encounter for preprocedural laboratory examination (principal); I44.1 Atrioventricular block, second degree
CPT/HCPCS: 36415; 80051; 82565; 84520

== ENCOUNTER 2019-02-07 05:46 | Day surgery (SDC) | payer MEDICARE ==
[2019-02-07] MEDS ORDERED: SODIUM CHLORIDE 0.9% 1,000 ML IV SCH (06:08)
[2019-02-07] MEDS ORDERED: SODIUM CHLORIDE 0.9% 1,000 ML IV ONE (06:28)
[2019-02-07] MEDS ORDERED: ceFAZolin 1,000 MG in SODIUM CHLORIDE 0.9% IRRIGATIO 250 ML IRRIGATION ONE (07:00)
[2019-02-07] MEDS ORDERED: LIDOCAINE 1% INJ 10MG/ML (20 ML MDV) ONE ×3 (07:43→09:15)
[2019-02-07] MEDS ORDERED: fentaNYL (PF) 50 MCG/ML 2 ML AMP ONE ×2 (07:44→10:13)
[2019-02-07] MEDS ORDERED: MIDAZOLAM PF (FBP) 2 MG/2 ML VIAL IVP ONE (08:10)
[2019-02-07] MEDS ORDERED: fentaNYL (PF) 50 MCG/ML 2 ML AMP IVP ONE (08:10)
[2019-02-07] MEDS ORDERED: ceFAZolin 1,000 MG VIAL IV ONE (08:10)
[2019-02-07] MEDS ORDERED: LIDOCAINE 1% INJ 10MG/ML (20 ML MDV) SQ ONE (08:11)
[2019-02-07] MEDS ORDERED: ALBUTEROL NEBULIZED 2.5 MG/3 ML INHALATION PRN (09:09)
[2019-02-07] MEDS ORDERED: NITROGLYCERIN SL TABS 0.4 MG TAB SUBLINGUAL PRN (09:09)
--- NOTE | 2019-02-07 09:19 | P.PCN ---
Date of Procedure: 02/07/19 Preoperative Diagnosis: Sick sinus syndrome with evidence of for AV block and intermittent A. fib with RVR. History of syncope Postoperative Diagnosis: The same Procedure(s) Performed: Axillary venography, dual chamber permanent pacemaker implantation Description of Procedure: HISTORY: This is a 73-year-old female with history of sick sinus syndrome and also history of syncope. She was documented to have episodes of atrial f ibrillation and also periods of high degree AV block suggestive of sick sinus syndrome. Patient is advised to have permanent pacemaker implantation. CONSENT:I have discussed the risks, benefits and alternative therapies for the above-mentioned procedure and for both sedation/analgesia as well as necessary blood product administration, if indicated, as they pertain to this patient. The patient has indicated understanding and acceptance of the risks and procedures discussed. PROCEDURE: Patient was brought to the lab in a fasting state. Patient was prepped and draped in the usual fashion. Patient was given IV sedation with fentanyl and Versed. The skin below the left clavicle was infiltrated with lidocaine. An incision was made parallel to deltopectoral groove was deepened until the pectoral fascia was exposed. A pocket was created by blunt dissection and cautery. Axillary venography was performed to delineate the course of the axillary vein. 2 sticks were performed into extrathoracic portion of the axillary vein and 2 sheaths were advanced over the guidewires and left in subclavian vein. Conscious Sedation: Versed 1mg Fentanyl 50 g Duration 63minutes LEADS: ATRIAL: This is manufactured by [employer]. Model number is [id number]. The serial number is [id number]. VENTRICULAR: This is manufactured by [employer]. Model number is [id number] and the serial number is [id number] THE DEVICE: This is manufactured by [employer]. Model number is [id number] and the serial number is [id number]. The ventricular lead is maneuvered l with help of a straight and curved stylets into the left ventricle inferior, apical region. Satisfactory position was obtained and threshold measurements were made. The atrial lead was then maneuvered into the right atrial appendage. And thresholds were obtained. THRESHOLDS: ATRIUM: The minimum patient threshold is 0.5 V at a pulse width of 0.5. The impedance is 494 P-wave:2.1 by VENTRICLE: The minimal patient threshold was 0.3 at pulse width of 0.5. The impedance is 1026 R-wave:8.25 The leads and pulse generator remained in the pocket after it was washed with antibiotics. Pocket was closed in the usual fashion. The fascia was closed with 2-0 Prolene ,the subcutaneous tissue was closed with 3-0 Prolene and the skin was closed with 4-0 Prolene. PROGRAMMING: MODE: AAIR with DDDR RATE: 60-130 OUTPUT: Atrium: 3.5 V Ventricle: 3.5 V FINAL IMPRESSION: #1 axillary venography #2. Successful implantation of dual- chamber pacemaker COMPLICATIONS: None PLAN: Patient will monitored on the telemetry unit. Prophylactic antibacterial be continued. Chest x-ray in the morning. Possible discharge in the morning.
--- NOTE | 2019-02-07 10:04 | P.PCN ---
Date of Procedure: 02/07/19 Preoperative Diagnosis: History of loop recorder insertion Postoperative Diagnosis: The same Procedure(s) Performed: Removal of the loop recorder Description of Procedure: Procedure: Patient was prepped and draped in the usual fashion. The skin over the existing device is infiltrated with lidocaine. An incision was made in the skin. Both perpendicular and parallel to the device. Incision was deepened and the device was exposed. The device was pulled out of the pocket. The pocket was closed in the usual fashion. Patient tolerated the procedure well. Final impression: Removal of loop recorder. Plan: Patient will be continued on prophylactic antibiotics. Patient is being monitored for pacemaker. Possible discharge tomorrow
[2019-02-07] MEDS: SODIUM CHLORIDE 0.9% 1,000 ML IV SCH (12:37)
[2019-02-07 14:45] VITALS: BMI 32.1
[2019-02-07] MEDS: ACETAMINOPHEN TAB 325 MG TAB PO PRN ×2 (14:46→20:59)
[2019-02-07] MEDS ORDERED: HYDROCHLOROTHIAZIDE 25 MG TAB PO SCH (21:00)
[2019-02-07] MEDS ORDERED: METOPROLOL SUCCINATE (ER) 100 MG TAB.ER.24H PO SCH (21:00)
[2019-02-07] MEDS ORDERED: LOSARTAN 50 MG TAB PO SCH (21:00)
[2019-02-08] MEDS: SODIUM CHLORIDE 0.9% 1,000 ML IV SCH (03:19)
--- NOTE | 2019-02-08 06:39 | XR ---
EXAMINATION TYPE: XR chest 2V DATE OF EXAM: 02/08/2019 HISTORY: Lead placement check. REFERENCE: Previous study dated 02/01/2018. FINDINGS: The transvenous pacemaker has been inserted via a left subclavian approach. Approximately o verlies the right atrium and distally overlies right ventricle. There is calcified granuloma in the right upper lobe. The lungs are otherwise clear. Pleural spaces a re clear. The heart is not enlarged. IMPRESSION: SATISFACTORY PACEMAKER PLACEMENT.
[2019-02-08 09:56] VITALS: RESP 20; TEMP 98.4
[2019-02-08 11:29] VITALS: BP 172/72; PULSE 71
== END 2019-02-08 13:11 | disposition home or self-care (01) ==
LOC: CATHEP 05:46 → 3SCARD 09:00 → CATHEP 02-08 13:11
PROVIDERS: ATTEND Internal Medicine Cardiovascular Disease
DX: I49.5 Sick sinus syndrome (principal); I44.1 Atrioventricular block, second degree; I47.2 Ventricular tachycardia; I10 Essential (primary) hypertension; I66.9 Occlusion and stenosis of unspecified cerebral artery; E78.5 Hyperlipidemia, unspecified; E78.00 Pure hypercholesterolemia, unspecified; I48.0 Paroxysmal atrial fibrillation; I73.9 Peripheral vascular disease, unspecified; Z72.0 Tobacco use; Z79.01 Long term (current) use of anticoagulants; Z79.82 Long term (current) use of aspirin; Z79.899 Other long term (current) drug therapy; Z88.5 Allergy status to narcotic agent; Z91.040 Latex allergy status; Z82.49 Family history of ischemic heart disease and other diseases of the circulatory system
CPT/HCPCS: 33286; 33208; 71046; C1892; C1898; C1769; C1785; J0690 ×3; J2001; J3010; J2250

== ENCOUNTER 2019-04-16 06:58 | Day surgery (SDC) | payer MEDICARE ==
[2019-04-14 11:37] VITALS: BMI 32.2
[~2019-04-16 06:58] MED LIST: LACTATED RINGERS 1,000 ML IV SCH
--- NOTE | 2019-04-16 07:39 | P.GSHP ---
History of Present Illness H&P Date: 04/16/19 Chief Complaint: Rectal bleeding Patient today for colonoscopy. Has had episodes of rectal bleeding. Was on eloquis for a while. Last colonoscopy 2010. There was an incomplete study requiring barium enema at that time. No abdominal pain. Past Medical History Past Medical History: Atrial Fibrillation, Asthma, Coronary Artery Disease (CAD), CVA/TIA, Hyperlipidemia, Hypertension, Osteoarthritis (OA), Pneumonia, Vascular Disorder Additional Past Medical History / Comment(s): had one episode of dark blood in stool, States has had both CVA and TIA's in past, not residula effects, PAD, totally occluded L carotid artery-had L carotid endartectomy done twice and R leg femoral bypass, chronic low back pain and R leg pain with ambulation, scoliosis, has R toe fracture and tendons damage across R foot, R ear skin cancer removed, gout bilateral feet, hemorrhoids, hypoglycemia. History of Any Multi-Drug Resistant Organisms: None Reported Past Surgical History: Appendectomy, Cholecystectomy, Heart Catheterization With Stent, Pacemaker Additional Past Surgical History / Comment(s): had loop recorder implanted now out, R carotid endartectomy done twice, R femoral bypass, PCI with stent to LAD, colonoscopy, R ear skin cancer removal. Past Anesthesia/Blood Transfusion Reactions: Motion Sickness Date of Last Stent Placement:: unknown Type of Cardiac Device: Permanent Pacemaker Device Placement Date:: 02/07/19 Smoking Status: Former smoker - Past Family History Father Additional Family Medical History / Comment(s): Father of ALS at the age of 67yrs. Mother Family Medical History: Congestive Heart Failure (CHF), Myocardial Infarction ([place]) Additional Family Medical History / Comment(s): Mother of a [place] at the age of 71yrs. Medications and Allergies Home Medications Medication Instructions Recorded Confirmed Type Albuterol Sulfate [Proair Hfa] 2 puff INHALATION RT-Q6H PRN 02/01/18 04/14/19 History Metoprolol Succinate [Toprol Xl] 100 mg PO HS 02/01/18 04/14/19 History Nitroglycerin Sl Tabs [Nitrostat] 0.4 mg SUBLINGUAL Q5M PRN 02/01/18 04/14/19 History Aspirin 162 mg PO DAILY #60 chew 02/04/18 04/14/19 Rx Hydrochlorothiazide 25 mg PO HS 02/06/19 04/14/19 History Irbesartan 300 mg PO HS 02/06/19 04/14/19 History Allergies Allergy/AdvReac Type Severity Reaction Status Date / Time codeine Allergy Hallucinati Verified 04/16/19 07:36 ons Latex, Natural Rubber Allergy Rash/Hives Verified 04/16/19 07:36 band aid Allergy Rash/Hives Uncoded 04/16/19 07:36 stitches Allergy Rash/Hives/ Uncoded 04/16/19 07:36 itching Surgical - Exam Physical exam: General: Well-developed, well-nourished HEENT: Normocephalic, sclerae nonicteric Abdomen: Nontender, nondistended Extremities: No edema Neuro: Alert and oriented Assessment and Plan (1) Rectal bleeding Narrative/Plan: Will proceed with colonoscopy at this time Current Visit: Yes Status: Acute Code(s): K62.5 - HEMORRHAGE OF ANUS AND RECTUM SNOMED Code(s): 65780849
[2019-04-16 07:40] VITALS: RESP 16; TEMP 98.1
[2019-04-16] MEDS ORDERED: fentaNYL (PF) 50 MCG/ML 2 ML AMP ONE (07:50)
[2019-04-16] MEDS ORDERED: PROPOFOL 10 MG/ML 20 ML VIAL IV ONE (07:50)
[2019-04-16] MEDS ORDERED: MIDAZOLAM 2 MG/2 ML VIAL ONE (07:50)
--- NOTE | 2019-04-16 08:14 | P.PCN ---
Date of Procedure: 04/16/19 Procedure(s) Performed: PREOPERATIVE DIAGNOSIS: Rectal bleeding POSTOPERATIVE DIAGNOSIS: Left Sided colitis PROCEDURE: Colonoscopy with biopsy ANESTHESIA: MAC SURGEON: Eddie Lau M.D. SPECIMENS: Left colon ENDOSCOPIC PROCEDURE: The patient was placed on the endoscopy table in the left decubitus position. The Olympus colonoscope was inserted into the anus and passed under direct visualization to the base of the cecum. The appendiceal orifice was visualized. From that point the scope was slowly withdrawn inspecting all surfaces carefully. There were no neoplastic inflammatory or polypoid lesions throughout the cecum, ascending, transverse, or proximal descending colon. Starting in the distal descending colon all the way down to the proximal rectum there was inflammatory changes seen scattered throughout, this was non-circumferential, there was no significant ulcerations, no mass lesion, scattered diverticulosis was seen. Biopsies of the left sided colitis took place. Digital rectal examination was normal. The patient was taken to the recovery room in stable condition per anesthesia guidelines. RECOMMENDATIONS: Await biopsy results.
[2019-04-16 08:37] VITALS: BP 146/67; PULSE 64
== END 2019-04-16 08:51 | disposition home or self-care (01) ==
LOC: ORWHC2ENDO 06:58
PROVIDERS: ATTEND Surgery
DX: K51.50 Left sided colitis without complications (principal); I10 Essential (primary) hypertension; I48.91 Unspecified atrial fibrillation; I25.10 Atherosclerotic heart disease of native coronary artery without angina pectoris; E07.9 Disorder of thyroid, unspecified; R56.9 Unspecified convulsions; E78.5 Hyperlipidemia, unspecified; M19.90 Unspecified osteoarthritis, unspecified site; G89.29 Other chronic pain; M41.9 Scoliosis, unspecified; M10.9 Gout, unspecified; J45.909 Unspecified asthma, uncomplicated; Z88.5 Allergy status to narcotic agent; Z95.5 Presence of coronary angioplasty implant and graft; Z79.82 Long term (current) use of aspirin; Z79.899 Other long term (current) drug therapy; Z95.0 Presence of cardiac pacemaker; Z79.01 Long term (current) use of anticoagulants; Z86.73 Personal history of transient ischemic attack (TIA), and cerebral infarction without residual deficits; Z87.01 Personal history of pneumonia (recurrent); Z85.828 Personal history of other malignant neoplasm of skin; Z87.891 Personal history of nicotine dependence; Z98.890 Other specified postprocedural states; Z90.49 Acquired absence of other specified parts of digestive tract; Z91.040 Latex allergy status; Z91.048 Other nonmedicinal substance allergy status; Z82.49 Family history of ischemic heart disease and other diseases of the circulatory system
CPT/HCPCS: 45380; J2250; J3010; J2704; 88305

== ENCOUNTER → 2021-10-18 | Outpatient (CLI) | payer MEDICARE ==
[2021-10-18 22:38] LABS: HCT 40.6 % (37.2-46.3); HGB 11.9 g/dL (12.0-15.0); MCH 25.4 pg (27.0-32.0); MCHC 29.3 g/dL (32.0-37.0); MCV 86.8 fL (80.0-97.0); Mean Platelet Volume 9.4 fL (9.5-12.2); NRBC Per 100 WBC 0 /100 WBCS (0.0-0.0); Platelet Count 334 X 10*3/uL (140-440); RBC 4.68 X 10*6/uL (4.10-5.20); RDW 22.8 % (11.5-14.5); WBC 8.56 X 10*3/uL (4.50-10.00)
[2021-10-18 23:13] LABS: Basophils # (A) 0.07 X 10*3/uL (0.00-0.10); Basophils % (A) 0.8 %; Eosinophils # (A) 0.28 X 10*3/uL (0.04-0.35); Eosinophils % (A) 3.3 %; Immature Grans, Automated 0.4 %; Lymphocytes # (A) 1.56 X 10*3/uL (0.90-5.00); Lymphocytes % (A) 18.2 %; Monocytes # (A) 0.67 X 10*3/uL (0.20-1.00); Monocytes % (A) 7.8 %; Neutrophils # (A) 5.95 X 10*3/uL (1.80-7.70); Neutrophils % (A) 69.5 %; RBC Morphology NORMAL
== END | disposition home or self-care (01) ==
LOC: LABWHC1 14:40
PROVIDERS: ATTEND Internal Medicine Cardiovascular Disease
DX: D64.9 Anemia, unspecified (principal); K92.2 Gastrointestinal hemorrhage, unspecified
CPT/HCPCS: 36415; 85025

== ENCOUNTER → 2021-11-08 | Outpatient (CLI) | payer MEDICARE ==
[2021-11-08 22:25] LABS: Basophils # (A) 0.06 X 10*3/uL (0.00-0.10); Basophils % (A) 0.8 %; Eosinophils # (A) 0.33 X 10*3/uL (0.04-0.35); Eosinophils % (A) 4.2 %; HCT 35.7 % (37.2-46.3); HGB 11.5 g/dL (12.0-15.0); Immature Grans, Automated 0.3 %; Lymphocytes # (A) 1.69 X 10*3/uL (0.90-5.00); Lymphocytes % (A) 21.7 %; MCH 26.5 pg (27.0-32.0); MCHC 32.2 g/dL (32.0-37.0); MCV 82.3 fL (80.0-97.0); Monocytes # (A) 0.58 X 10*3/uL (0.20-1.00); Monocytes % (A) 7.5 %; NRBC Per 100 WBC 0 /100 WBCS (0.0-0.0); Neutrophils % (A) 65.5 %; Platelet Count 268 X 10*3/uL (140-440); RBC 4.34 X 10*6/uL (4.10-5.20); RDW 20.8 % (11.5-14.5); WBC 7.78 X 10*3/uL (4.50-10.00)
== END | disposition home or self-care (01) ==
LOC: LABWHC1 15:21
PROVIDERS: ATTEND Internal Medicine Cardiovascular Disease
DX: D64.9 Anemia, unspecified (principal); K92.2 Gastrointestinal hemorrhage, unspecified
CPT/HCPCS: 36415; 85025

== ENCOUNTER 2022-12-11 18:51 | Emergency (ER) | payer MEDICARE ==
--- NOTE | 2022-12-11 21:11 | ED ---
General Adult HPI - General Chief complaint: Abdominal Pain Stated complaint: abd pain Time Seen by Provider: 12/11/22 20:40 Source: patient, RN notes reviewed Mode of arrival: ambulatory Limitations: no limitations - History of Present Illness Initial comments: 77-year-old female with past medical history significant for hypertension presents emergency department with a chief complaint of generalized lower abdominal pain. She reports generalized abdominal pain that is sharp and intermittent S couple of days. She denies any known fevers, flank pain, nausea, vomiting, melena, hematochezia. She does report having bouts of dark stools 6 m onths ago. She reports that she was given a stool softener notes have since resolved. She does report that she takes Eliquis. She has not taken anything for her symptoms. Denies known fever, cough, chills, chest pain, palpitations, shortness of breath - Related Data Home Medications Medication Instructions Recorded Confirmed Albuterol Sulfate [Proair Hfa] 2 puff INHALATION RT-Q6H PRN 02/01/18 04/16/19 Metoprolol Succinate [Toprol Xl] 150 mg PO HS 02/01/18 12/12/22 Nitroglycerin Sl Tabs [Nitrostat] 0.4 mg SUBLINGUAL Q5M PRN 02/01/18 04/16/19 Irbesartan 300 mg PO HS 02/06/19 04/16/19 hydroCHLOROthiazide 25 mg PO HS 02/06/19 12/12/22 Previous Rx's Medication Instructions Recorded Aspirin 162 mg PO DAILY #60 chew 02/04/18 Allergies Allergy/AdvReac Type Severity Reaction Status Date / Time codeine Allergy Hallucinati Verified 12/11/22 19:17 ons Latex, Natural Rubber Allergy Rash/Hives Verified 12/11/22 19:17 band aid Allergy Rash/Hives Uncoded 12/11/22 19:17 stitches Allergy Rash/Hives/ Uncoded 12/11/22 19:17 itching Review of Systems ROS Statement: Those systems with pertinent positive or pertinent negative responses have been documented in the HPI. ROS Other: All systems not noted in ROS Statement are negative. Past Medical History Past Medical History: Atrial Fibrillation, Asthma, Coronary Artery Disease (CAD), CVA/TIA, Hyperlipidemia, Hypertension, Osteoarthritis (OA), Pneumonia, Vascular Disorder Additional Past Medical History / Comment(s): had one episode of dark blood in stool, States has had both CVA and TIA's in past, not residula effects, PAD, totally occluded L carotid artery-had L carotid endartectomy done twice and R leg femoral bypass, chronic low back pain and R leg pain with ambulation, scoliosis, has R toe fracture and tendons damage across R foot, R ear skin cancer removed, gout bilateral feet, hemorrhoids, hypoglycemia. History of Any Multi-Drug Resistant Organisms: None Reported Past Surgical History: Appendectomy, Cholecystectomy, Heart Catheterization With Stent, Pacemaker Additional Past Surgical History / Comment(s): had loop recorder implanted now out, R carotid endartectomy done twice, R femoral bypass, PCI with stent to LAD, colonoscopy, R ear skin cancer removal. Past Anesthesia/Blood Transfusion Reactions: Motion Sickness Date of Last Stent Placement:: unknown Type of Cardiac Device: Permanent Pacemaker Device Placement Date:: 02/07/19 Past Psychological History: Anxiety Smoking Status: Former smoker Past Alcohol Use History: Occasional Past Drug Use History: None Reported - Past Family History Father Additional Family Medical History / Comment(s): Father of ALS at the age of 67yrs. Mother Family Medical History: Congestive Heart Failure (CHF), Myocardial Infarction ([place]) Additional Family Medical History / Comment(s): Mother of a [place] at the age of 71yrs. General Exam - General Exam Comments Initial Comments: General: Alert, in no acute distress Head: atraumatic normocephalic. Eyes PERRL, EOMI intact, mucous membranes moist Respiratory: Lungs clear to auscultation bilaterally Cardiovascular: Heart rate regular rate and rhythm Abdominal: Soft without guarding or rebound, bilateral lower abdominal tenderness Extremities: Normal inspection with full range of motion and normal capillary refill Neuroogic: alert and oriented 3, CN II-XII intact, able to ambulate with steady gait Skin: warm dry and intact with normal color Limitations: no limitations Course Vital Signs 12/11/22 12/11/22 12/12/22 19:15 21:17 01:37 Temperature 98.5 F 97.9 F 98.3 F Pulse Rate 78 79 73 Respiratory 18 16 18 Rate Blood Pressure 194/80 214/79 O2 Sat by Pulse 98 99 98 Oximetry Medical Decision Making - Medical Decision Making Was pt. sent in by a medical professional or institution (, PA, [employer], urgent care, hospital, or custodial...) When possible be specific @ -[No] Did you speak to anyone other than the patient for history (EMS, parent, family, police, friend...)? What history was obtained from this source @ -[No] Did you review nursing and triage notes (agree or disagree)? Why? @ -[I reviewed and agree with nursing and triage notes] Were old charts reviewed (outside hosp., previous admission, EMS record, old EKG, old radiological studies, urgent care reports/EKG's, custodial records)? Report findings @ -[No old charts were reviewed] Differential Diagnosis (chest pain, altered mental status, abdominal pain women, abdominal pain men, vaginal bleeding, weakness, fever, dyspnea, syncope, headache, dizziness, GI bleed, back pain, seizure, CVA, palpatations, mental health, musculoskeletal)? @ -[not applicable] EKG interpreted by me (3pts min.). @ -[As above] X-rays interpreted by me (1pt min.). @ -[None done] CT interpreted by me (1pt min.). @ -T abdomen pelvis negative for any intra-abdominal process U/S interpreted by me (1pt. min.). @ -[None done] What testing was considered but not performed or refused? (CT, X-rays, U/S, labs)? Why? @ -[None] What meds were considered but not given or refused? Why? @ -[None] Did you discuss the management of the patient with other professionals (professionals i.e. , PA, [employer], lab, RT, psych nurse, high school social studies tutor, switch cleaner, teacher, lodge officer, caser in)? Give summary @ -[No] Was smoking cessation discussed for >3mins.? @ -[No] Was critical care preformed (if so, how long)? @ -[No] Were there social determinants of health that impacted care today? How? (Homelessness, low income, unemployed, alcoholism, drug addiction, transportation, low edu. Level, literacy, decrease access to med. care, [facility], rehab)? @ -[No] Was there de-escalation of care discussed even if they declined (Discuss DNR or withdrawal of care, Hospice)? DNR status @ -[No] What co-morbidities impacted this encounter? (DM, HTN, Smoking, COPD, CAD, Cancer, CVA, ARF, Chemo, Hep., AIDS, mental health diagnosis, sleep apnea, morbid obesity)? @ -[None] Was patient admitted / discharged? Hospital course, mention meds given and route, prescriptions, significant lab abnormalities, going to OR and other pertinent info. @ -Discharged. This is a pleasant 77-year-old female who presents to the emergency department with abdominal pain. Patient had a thorough history and physical exam performed on the ED. Physical exam reveals mild generalized tenderness. Patient had lab work and imaging performed which was essentially unremarkable. She was given 1 L of IV fluids with symptomatic relief in the ED. I discussed results in detail with the patient verbalized understanding and all questions were addressed. Return precautions were discussed at length. Patient will be discharged home in stable condition with recommended close follow-up with PCP in 1-2 days. She was given a prescription for Bentyl. She is discussed with ALPHONSE Mcpherson who agrees with plan of care Undiagnosed new problem with uncertain prognosis? @ -[No] Drug Therapy requiring intensive monitoring for toxicity (Heparin, Nitro, Insulin, Cardizem)? @ -[No] Were any procedures done? @ -[No] Diagnosis/symptom? @ -Abdominal pain Acute, or Chronic, or Acute on Chronic? @ -Acute Uncomplicated (without systemic symptoms) or Complicated (systemic symptoms)? @ -Uncomplicated Side effects of treatment? @ -[No] Exacerbation, Progression, or Severe Exacerbation? @ -[No] Poses a threat to life or bodily function? How? (Chest pain, [place], [place], pneumonia, PE, COPD, DKA, ARF, appy, cholecystitis, CVA, Diverticulitis, Homicidal, Suicidal, threat to staff... and all critical care pts) @ -Low likelihood - Lab Data Result diagrams: 12/11/22 21:12 12/11/22 21:12 Lab Results 12/11/22 12/11/22 12/11/22 Range/Units 21:12 21:12 21:12 WBC 9.9 (3.8-10.6) k/uL RBC 4.08 (3.80-5.40) m/uL Hgb 12.2 (11.4-16.0) gm/dL Hct 37.1 (34.0-46.0) % MCV 91.1 (80.0-100.0) fL MCH 29.8 (25.0-35.0) pg MCHC 32.7 (31.0-37.0) g/dL RDW 13.3 (11.5-15.5) % Plt Count 336 (150-450) k/uL MPV 7.2 Neutrophils % 62 % Lymphocytes % 25 % Monocytes % 7 % Eosinophils % 4 % Basophils % 1 % Neutrophils # 6.2 (1.3-7.7) k/uL Lymphocytes # 2.5 (1.0-4.8) k/uL Monocytes # 0.7 (0-1.0) k/uL Eosinophils # 0.4 (0-0.7) k/uL Basophils # 0.1 (0-0.2) k/uL PT 11.3 (9.0-12.0) sec INR 1.1 (<1.2) APTT 26.0 (22.0-30.0) sec Sodium 138 (137-145) mmol/L Potassium 4.0 (3.5-5.1) mmol/L Chloride 99 (98-107) mmol/L Carbon Dioxide 27 (22-30) mmol/L Anion Gap 12 mmol/L BUN 17 (7-17) mg/dL Creatinine 1.23 H (0.52-1.04) mg/dL Est GFR (CKD-EPI)AfAm 49 (>60 ml/min/1.73 sqM) Est GFR (CKD-EPI)NonAf 43 (>60 ml/min/1.73 sqM) Glucose 106 H (74-99) mg/dL Plasma Lactic Acid Sudeep (0.7-2.0) mmol/L Calcium 9.1 (8.4-10.2) mg/dL Total Bilirubin 0.6 (0.2-1.3) mg/dL AST 27 (14-36) U/L ALT 14 (4-34) U/L Alkaline Phosphatase 86 (38-126) U/L Total Protein 7.8 (6.3-8.2) g/dL Albumin 4.5 (3.5-5.0) g/dL Urine Color Urine Appearance (Clear) Urine pH (5.0-8.0) Ur Specific [place] (1.001-1.035) Urine Protein (Negative) Urine Glucose (UA) (Negative) Urine Ketones (Negative) Urine Blood (Negative) Urine Nitrite (Negative) Urine Bilirubin (Negative) Urine Urobilinogen (<2.0) mg/dL Ur Leukocyte Esterase (Negative) Urine RBC (0-5) /hpf Urine WBC (0-5) /hpf Ur Squamous Epith Cells (0-4) /hpf Urine Bacteria (None) /hpf Hyaline Casts (0-2) /lpf Urine Mucus (None) /hpf Influenza Type A (PCR) (Not Detectd) Influenza Type B (PCR) (Not Detectd) RSV (PCR) (Not Detectd) SARS-CoV-2 (PCR) (Not Detectd) 12/11/22 12/11/22 12/12/22 Range/Units 21:12 21:12 00:01 WBC (3.8-10.6) k/uL RBC (3.80-5.40) m/uL Hgb (11.4-16.0) gm/dL Hct (34.0-46.0) % MCV (80.0-100.0) fL MCH (25.0-35.0) pg MCHC (31.0-37.0) g/dL RDW (11.5-15.5) % Plt Count (150-450) k/uL MPV Neutrophils % % Lymphocytes % % Monocytes % % Eosinophils % % Basophils % % Neutrophils # (1.3-7.7) k/uL Lymphocytes # (1.0-4.8) k/uL Monocytes # (0-1.0) k/uL Eosinophils # (0-0.7) k/uL Basophils # (0-0.2) k/uL PT (9.0-12.0) sec INR (<1.2) APTT (22.0-30.0) sec Sodium (137-145) mmol/L Potassium (3.5-5.1) mmol/L Chloride (98-107) mmol/L Carbon Dioxide (22-30) mmol/L Anion Gap mmol/L BUN (7-17) mg/dL Creatinine (0.52-1.04) mg/dL Est GFR (CKD-EPI)AfAm (>60 ml/min/1.73 sqM) Est GFR (CKD-EPI)NonAf (>60 ml/min/1.73 sqM) Glucose (74-99) mg/dL Plasma Lactic Acid Sudeep 1.2 (0.7-2.0) mmol/L Calcium (8.4-10.2) mg/dL Total Bilirubin (0.2-1.3) mg/dL AST (14-36) U/L ALT (4-34) U/L Alkaline Phosphatase (38-126) U/L Total Protein (6.3-8.2) g/dL Albumin (3.5-5.0) g/dL Urine Color Light Yellow Urine Appearance Clear (Clear) Urine pH 6.0 (5.0-8.0) Ur Specific [place] 1.012 (1.001-1.035) Urine Protein Negative (Negative) Urine Glucose (UA) Negative (Negative) Urine Ketones Negative (Negative) Urine Blood Negative (Negative) Urine Nitrite Negative (Negative) Urine Bilirubin Negative (Negative) Urine Urobilinogen <2.0 (<2.0) mg/dL Ur Leukocyte Esterase Trace H (Negative) Urine RBC 3 (0-5) /hpf Urine WBC 1 (0-5) /hpf Ur Squamous Epith Cells 2 (0-4) /hpf Urine Bacteria Occasional H (None) /hpf Hyaline Casts 1 (0-2) /lpf Urine Mucus Rare H (None) /hpf Influenza Type A (PCR) Not Detected (Not Detectd) Influenza Type B (PCR) Not Detected (Not Detectd) RSV (PCR) Not Detected (Not Detectd) SARS-CoV-2 (PCR) Not Detected (Not Detectd) Disposition Clinical Impression: Abdominal pain Disposition: HOME SELF-CARE Condition: Stable Additional Instructions: Please return to the nearest emergency department if symptoms worsen or persist Is patient prescribed a controlled substance at d/c from ED?: No Referrals: Nonstaff,Physician [Primary Care Provider] - 1-2 days Time of Disposition: 01:17
[2022-12-11] MEDS ORDERED: SODIUM CHLORIDE 0.9% 1,000 ML IV ONE (21:12)
[2022-12-11] MEDS ORDERED: FAMOTIDINE 20 MG/2 ML VIAL IV STA (21:12)
[2022-12-11 21:37] VITALS: BP 214/79
[2022-12-11 21:52] LABS: Basophils # (A) 0.1 k/uL (0-0.2); Basophils % (A) 1 %; Eosinophils # (A) 0.4 k/uL (0-0.7); Eosinophils % (A) 4 %; HCT 37.1 % (34.0-46.0); HGB 12.2 gm/dL (11.4-16.0); Lymphocytes # (A) 2.5 k/uL (1.0-4.8); Lymphocytes % (A) 25 %; MCH 29.8 pg (25.0-35.0); MCHC 32.7 g/dL (31.0-37.0); MCV 91.1 fL (80.0-100.0); Mean Platelet Volume 7.2; Monocytes # (A) 0.7 k/uL (0-1.0); Monocytes % (A) 7 %; Neutrophils # (A) 6.2 k/uL (1.3-7.7); Neutrophils % (A) 62 %; Platelet Count 336 k/uL (150-450); RBC 4.08 m/uL (3.80-5.40); RDW 13.3 % (11.5-15.5); WBC 9.9 k/uL (3.8-10.6)
[2022-12-11 22:03] LABS: INR 1.1 (<1.2); Prothrombin Time 11.3 sec (9.0-12.0)
[2022-12-11 22:04] LABS: ALT 14 U/L (4-34); AST 27 U/L (14-36); African American GFR (CKD) 49 (>60 ml/min/1.73 sqM); Albumin 4.5 g/dL (3.5-5.0); Alkaline Phosphatase 86 U/L (38-126); Anion Gap 12 mmol/L; Blood Urea Nitrogen 17 mg/dL (7-17); Calcium 9.1 mg/dL (8.4-10.2); Carbon Dioxide 27 mmol/L (22-30); Chloride 99 mmol/L (98-107); Glucose 106 mg/dL (74-99); Non-African American GFR(CKD) 43 (>60 ml/min/1.73 sqM); Sodium 138 mmol/L (137-145); Total Bilirubin 0.6 mg/dL (0.2-1.3); Total Protein 7.8 g/dL (6.3-8.2)
--- NOTE | 2022-12-11 23:20 | CT ---
EXAM: CT Abdomen and Pelvis With Intravenous Contrast CLINICAL HISTORY: ITS.REASON CT Reason: abdominal pain TECHNIQUE: Axial computed tomography images of the abdomen and pelvis with intravenous contrast. CTDI is 25.8 mGy and DLP is 1230.9 mGy-cm. This CT exam was performed using one or more of the following dose reduction techniques: automated exposure control, adjustment of the mA and/or kV according to patient size, and/or use of iterative reconstruction technique. COMPARISON: No relevant prior studies available. FINDINGS: Lung bases: Unremarkable. No mass. No consolidation. ABDOMEN: Liver: Unremarkable. No mass. Gallbladder and bile ducts: Cholecystectomy. No ductal dilation. Pancreas: Unremarkable. No mass. No ductal dilation. Spleen: Unremarkable. No splenomegaly. Adrenals: Unremarkable. No mass. Kidneys and ureters: Atrophy of the RIGHT kidney with mild compensatory hypertrophy of the LEFT kidney. No hydronephrosis. Stomach and bowel: Diverticulosis, without acute diverticulitis. No small bowel obstruction. No free intraperitoneal air. PELVIS: Appendix: No findings to suggest acute appendicitis. Bladder: RIGHT bladder diverticulum measures 2.6 x 2.9 cm. Reproductive: Unremarkable as visualized. ABDOMEN and PELVIS: Intraperitoneal space: Unremarkable. No free air. No significant fluid collection. Bones/joints: Degenerative changes of the spine. No acute fracture. No dislocation. Soft tissues: Unremarkable. Vasculature: Atherosclerotic changes of the aorta. No abdominal aortic aneurysm. Lymph nodes: Unremarkable. No enlarged lymph nodes. Tubes, lines and devices: Pacemaker leads. IMPRESSION: 1. Cholecystectomy. 2. Atrophy of the RIGHT kidney with mild compensatory hypertrophy of the LEFT kidney. 3. RIGHT bladder diverticulum measures 2.6 x 2.9 cm. 4. Diverticulosis, without acute diverticulitis. No small bowel obstruction. No free intraperitoneal air.
[2022-12-12] MEDS ORDERED: METOPROLOL SUCCINATE (ER) 100 MG TAB.ER.24H PO STA (00:36)
[2022-12-12] MEDS ORDERED: hydroCHLOROthiazide 25 MG TAB PO STA (00:38)
[2022-12-12 01:25] LABS: Appearance,Urine Clear (Clear); Bacteria,Urine Occasional /hpf; Bilirubin,Urine Negative (Negative); Blood,Urine Negative (Negative); Color,Urine Light Yellow; Glucose,Urine (UA) Negative (Negative); Hyaline Casts,Urine 1 /lpf (0-2); Ketones,Urine Negative (Negative); Leukocyte Esterase,Urine Trace (Negative); Mucus,Urine Rare /hpf; Nitrite,Urine Negative (Negative); Protein,Urine Negative (Negative); RBC,Urine 3 /hpf (0-5); Specific Gravity,Urine 1.012 (1.001-1.035); Squamous Epithelial Cell,Urine 2 /hpf (0-4); Urobilinogen,Urine <2.0 mg/dL (<2.0); WBC,Urine 1 /hpf (0-5)
[2022-12-12 01:38] VITALS: PULSE 73; RESP 18; TEMP 98.3
[2022-12-12] MEDS ORDERED: hydroCHLOROthiazide 25 MG TAB PO SCH (09:00)
== END 2022-12-12 01:37 | disposition home or self-care (01) ==
LOC: EC 18:51 → SUPCPDRO 18:51 → EC 12-12 01:37
DX: R10.84 Generalized abdominal pain (principal); I10 Essential (primary) hypertension; J45.909 Unspecified asthma, uncomplicated; E78.5 Hyperlipidemia, unspecified; I25.10 Atherosclerotic heart disease of native coronary artery without angina pectoris; Z20.822 Contact with and (suspected) exposure to COVID-19; Z79.899 Other long term (current) drug therapy; Z95.5 Presence of coronary angioplasty implant and graft; Z88.5 Allergy status to narcotic agent; Z91.040 Latex allergy status; Z91.09 Other allergy status, other than to drugs and biological substances; Z87.891 Personal history of nicotine dependence; Z86.73 Personal history of transient ischemic attack (TIA), and cerebral infarction without residual deficits; Z90.49 Acquired absence of other specified parts of digestive tract
CPT/HCPCS: 36415; 80053; 83605; 85025; 85610; 85730; 81001; 87636; 74177; 99284; 96374; 96361 ×3; Q9967

== ENCOUNTER 2024-01-12 14:20 | Emergency (ER) | payer MEDICARE | END 2024-01-12 19:02 | disposition home or self-care (01) | LOC: EC 14:20 | DX: N93.9 Abnormal uterine and vaginal bleeding, unspecified (principal) | CPT/HCPCS: 86850; 86900; 86901; 99284 ==

== ENCOUNTER 2024-12-11 13:35 | Emergency (ER) | payer MEDICARE ==
[2024-12-11 13:54] VITALS: RESP 18; TEMP 97.9
--- NOTE | 2024-12-11 14:44 | ED ---
General Adult HPI - General Chief complaint: Fall Stated complaint: Fall on blood thinners Time Seen by Provider: 12/11/24 13:55 Source: patient, RN notes reviewed, old records reviewed Mode of arrival: ambulatory Limitations: no limitations - History of Present Illness Initial comments: This is a 79-year-old female who presents to the emergency department stating that she tripped on a on a level concrete and hit the right side of her face on the concrete she did not lose consciousness she was not dazed. Patient states she denies any neck pain. Patient does have some pain in her right shoulder right forearm and right knee. Patient has is a slight abrasion on her right forearm. Patient has no visual problems. Patient denies headache. Patient is on Eliquis - Related Data Home Medications Medication Instructions Recorded Confirmed Albuterol Sulfate [Proair Hfa] 2 puff INHALATION RT-Q6H PRN 02/01/18 04/16/19 Metoprolol Succinate [Toprol Xl] 150 mg PO HS 02/01/18 12/12/22 Nitroglycerin Sl Tabs [Nitrostat] 0.4 mg SUBLINGUAL Q5M PRN 02/01/18 04/16/19 Irbesartan 300 mg PO HS 02/06/19 04/16/19 hydroCHLOROthiazide 25 mg PO HS 02/06/19 12/12/22 Previous Rx's Medication Instructions Recorded Aspirin 162 mg PO DAILY #60 chew 02/04/18 Allergies Allergy/AdvReac Type Severity Reaction Status Date / Time codeine Allergy Hallucinati Verified 12/11/24 13:54 ons Latex, Natural Rubber Allergy Rash/Hives Verified 12/11/24 13:54 band aid Allergy Rash/Hives Uncoded 12/11/24 13:54 stitches Allergy Rash/Hives/ Uncoded 12/11/24 13:54 itching Review of Systems ROS Statement: Those systems with pertinent positive or pertinent negative responses have been documented in the HPI. ROS Other: All systems not noted in ROS Statement are negative. Past Medical History Past Medical History: Atrial Fibrillation, Asthma, Coronary Artery Disease (CAD), CVA/TIA, Hyperlipidemia, Hypertension, Osteoarthritis (OA), Pneumonia, Vascular Disorder Additional Past Medical History / Comment(s): had one episode of dark blood in stool, States has had both CVA and TIA's in past, not residula effects, PAD, totally occluded L carotid artery-had L carotid endartectomy done twice and R leg femoral bypass, chronic low back pain and R leg pain with ambulation, scoliosis, has R toe fracture and tendons damage across R foot, R ear skin cancer removed, gout bilateral feet, hemorrhoids, hypoglycemia. History of Any Multi-Drug Resistant Organisms: None Reported Past Surgical History: Appendectomy, Cholecystectomy, Heart Catheterization With Stent, Pacemaker Additional Past Surgical History / Comment(s): had loop recorder implanted now out, R carotid endartectomy done twice, R femoral bypass, PCI with stent to LAD, colonoscopy, R ear skin cancer removal. Past Anesthesia/Blood Transfusion Reactions: Motion Sickness Date of Last Stent Placement:: unknown Type of Cardiac Device: Permanent Pacemaker Device Placement Date:: 02/07/19 Past Psychological History: Anxiety Smoking Status: Former smoker Past Alcohol Use History: Occasional Past Drug Use History: None Reported - Past Family History Father Additional Family Medical History / Comment(s): Father of ALS at the age of 67yrs. Mother Family Medical History: Congestive Heart Failure (CHF), Myocardial Infarction (IA) Additional Family Medical History / Comment(s): Mother of a IA at the age of 71yrs. General Exam - General Exam Comments Initial Comments: GENERAL: Patient is well-developed and well-nourished. Patient is nontoxic and well- hydrated and is in mild distress. ENT: Neck is soft and supple. No significant lymphadenopathy is noted. Oropharynx is clear. Moist mucous membranes. Neck has full range of motion without eliciting any pain. EYES: The sclera were anicteric and conjunctiva were pink and moist. Extraocular movements were intact and pupils were equal round and reactive to light. Eyelids were unremarkable. PULMONARY: Unlabored respirations. Good breath sounds bilaterally. No audible rales rhonchi or wheezing was noted. CARDIOVASCULAR: There is a regular rate and rhythm without any murmurs gallops or rubs. ABDOMEN: Soft and nontender with normal bowel sounds. No palpable organomegaly was noted. There is no palpable pulsatile mass. SKIN: Skin is clear with no lesions or rashes and otherwise unremarkable. NEUROLOGIC: Patient is alert and oriented x3. Cranial nerves II through XII are grossly intact. Motor and sensory are also intact. Normal speech, volume and content. Symmetrical smile. MUSCULOSKELETAL: Patient has tenderness in the lateral right shoulder. Patient was on the kneecap on the right. Patient has some mild tenderness arm on the right LYMPHATICS: No significant lymphadenopathy is noted PSYCHIATRIC: Normal psychiatric evaluation. Limitations: no limitations Course Vital Signs 12/11/24 12/11/24 13:50 15:34 Temperature 97.9 F Pulse Rate 74 65 Respiratory 18 18 Rate Blood Pressure 203/72 194/83 O2 Sat by Pulse 96 97 Oximetry Medical Decision Making - Medical Decision Making Was pt. sent in by a medical professional or institution (, [facility], MUSIC ENGINEER, urgent care, hospital, or [facility]...) When possible be specific @ -No Did you speak to anyone other than the patient for history (EMS, parent, family, police, friend...)? What history was obtained from this source @ -No Did you review nursing and triage notes (agree or disagree)? Why? @ -I reviewed and agree with nursing and triage notes Were old charts reviewed (outside hosp., previous admission, EMS record, old EKG, old radiological studies, urgent care reports/EKG's, [facility] records)? Report findings @ -No Differential Diagnosis? @ -Differential Musculoskeletal Muscular strain, contusion, ligament sprain, fracture, arthritis, septic arthritis, bursitis, cellulitis, muscle spasm, nerve compression, DVT, arterial occlusion, herpes zoster, electrolyte abnormality, tumor.... This is not meant to be in all inclusive list EKG interpreted by me (3pts min.). @ -As above X-rays interpreted by me (1pt min.). @ -X-ray of the right shoulder right forearm and right knee show no acute abnormality CT interpreted by me (1pt min.). @ -CT of the brain and C-spine as well as the patient bones show no acute abnormality U/S interpreted by me (1pt. min.). @ -None done What testing was considered but not performed or refused? (CT, X-rays, U/S, labs)? Why? @ -None What meds were considered but not given or refused? Why? @ -None Did you discuss the management of the patient with other professionals (professionals i.e. ELL[facility] Raymundo, MUSIC ENGINEER, lab, RT, psych nurse, social service assistant, fitter mechanic, teacher, commercial loan officer, caser up)? Give summary @ -No Was smoking cessation discussed for >3mins.? @ -No Was critical care preformed (if so, how long)? @ -No Were there social determinants of health that impacted care today? How? (Homelessness, low income, unemployed, alcoholism, drug addiction, t ransportation, low edu. Level, literacy, decrease access to med. care, penitentiary, rehab)? @ -No Was there de-escalation of care discussed even if they declined (Discuss DNR or withdrawal of care, Hospice)? DNR status @ -No What co-morbidities impacted this encounter? (DM, HTN, Smoking, COPD, CAD, Cancer, CVA, ARF, Chemo, Hep., AIDS, mental health diagnosis, sleep apnea, morbid obesity)? @ -None Was patient admitted / discharged? Hospital course, mention meds given and route, prescriptions, significant lab abnormalities, going to OR and other pertinent info. @ -I went back and reevaluated the patient and she was feeling sore but able to move all 4 extremities. Patient was instructed to return if there is any headaches or altered mental status Undiagnosed new problem with uncertain prognosis? @ -No Drug Therapy requiring intensive monitoring for toxicity (Heparin, Nitro, Insulin, Cardizem)? @ -No Were any procedures done? @ -No Diagnosis/symptom? @ -Head injury Acute, or Chronic, or Acute on Chronic? @ -Acute Uncomplicated (without systemic symptoms) or Complicated (systemic symptoms)? @ -Complicated Side effects of treatment? @ -No Exacerbation, Progression, or Severe Exacerbation? @ -No Poses a threat to life or bodily function? How? (Chest pain, USA, IA, pneumonia, PE, COPD, DKA, ARF, appy, cholecystitis, CVA, Diverticulitis, Homicidal, Suicidal, threat to staff... and all critical care pts) @ -No Diagnosis/symptom? @ -Contusion shoulder contusion forearm Acute, or Chronic, or Acute on Chronic? @ -Acute Uncomplicated (without systemic symptoms) or Complicated (systemic symptoms)? @ -Uncomplicated Side effects of treatment? @ -None Exacerbation, Progression, or Severe Exacerbation] @ -No Poses a threat to life or bodily function? @ -No Diagnosis/symptom? @ -Knee strain Acute, or Chronic, or Acute on Chronic? @ -Acute Uncomplicated (without systemic symptoms) or Complicated (systemic symptoms)? @ -Uncomplicated Side effects of treatment? @ -None Exacerbation, Progression, or Severe Exacerbation] @ -No Poses a threat to life or bodily function? @ -No Disposition Clinical Impression: Fall, Head injury, Contusion of shoulder, Contusion, forearm, Knee strain Disposition: HOME SELF-CARE Condition: Good Instructions (If sedation given, give patient instructions): Fall Prevention for Older Adults (ED), Contusion in Adults (ED) Additional Instructions: Patient can take Motrin and Tylenol as needed for pain Is patient prescribed a controlled substance at d/c from ED?: No Referrals: Nonstaff,Physician [Primary Care Provider] - 1-2 days Time of Disposition: 16:49
--- NOTE | 2024-12-11 14:56 | CT ---
EXAMINATION TYPE: CT brain cspine wo con, CT orbits wo con CT DLP: Combined DLP of 883.6 mGycm, Automated exposure control for dose reduction was used. DATE OF EXAM: 12/11/2024 2:29 PM COMPARISON: MRI brain 01/21/2019, CT brain 09/24/2018. CLINICAL INDICATION:Female, 79 years old with history of Trauma; Code coag, Fall on thinners., pain TECHNIQUE: Brain: Multiple axial CT images of the brain were obtained without IV contrast. Cspine: Axial CT images from the skull base to the inferior aspect of T2 we obtained without intraven ous contrast. Coronal and sagittal reformatted images were also reviewed. FINDINGS: Brain: Extra-axial spaces: No abnormal extra-axial fluid collections. Ventricular system: Dilatation in proportion to cerebral atrophy. Cerebral parenchyma: Mild age-appropriate cerebral atrophy. No acute intraparenchymal hemorrhage or m ass effect. The taylor-white junction is well differentiated. Scattered hypoattenuating areas are seen within the periventricular white matter. Cerebellum: Unremarkable. Mass effect: No evidence of midline shift. Intracranial vasculature: Atherosclerotic calcifications of the intracranial vessels. Soft tissues: Right taoism soft tissue contusions. Calvarium/osseous structures: No depressed skull fracture. Paranasal sinuses and mastoid air cells: Right mastoid is clear. Partial inferior left mastoid effusi on. Orbits: The globes have a normal contour. Bilateral aphakia. Orbital hill appear intact. The orbital fat is unremarkable. Extraocular muscles are within normal limits. The osseous structures are unremarkable. Right taoism soft tissue contusions. Cervical spine: Fracture: None. Osseous structures: Multilevel disc space narrowing with endplate sclerosis. Multilevel facet arthrop athy. Vertebral alignment: Within normal limits. Spinal canal/Neural Foramina: No evidence of significant spinal canal narrowing. Facet joint uncovert ebral joint arthropathy scattered throughout the cervical spine with varying degrees of neural forami nal stenosis. Neck soft tissues: Prevertebral soft tissues are within normal limits. Other: The airway is patent. The lung apices are clear. Multiple bilateral palatine tonsilloliths. Bi lateral carotid bifurcation calcifications. Surgical clips adjacent to the right carotid bifurcation. Left subclavian artery stent. Left anterior chest wall cardiac pacemaker device with leads partially visualized. Mild centrilobular emphysematous changes. Mild biapical pleural-parenchymal scarring. Co uple of nonspecific mildly prominent left lower cervical lymph nodes measuring up to 8 mm short axis. IMPRESSION: 1. No acute intracranial process. 2. Nonspecific white matter changes, likely secondary to chronic small vessel ischemic disease. 3. Acute right taoism soft tissue contusions. 4. No evidence of cervical spine fracture. 5. Mild multilevel degenerative disc disease. 6. No acute orbital abnormality. [facility], , 12/11/2024 2:53 PM
--- NOTE | 2024-12-11 15:26 | XR ---
EXAMINATION TYPE: XR shoulder complete 3 views RT, XR forearm 2 views RT, XR knee 3V RT DATE OF EXAM: 12/11/2024 3:17 PM COMPARISON: None CLINICAL INDICATION: Female, 79 years old with history of Trauma; PHH, pain FINDINGS: Right shoulder: Mild degenerative joint space narrowing at the AC joint. Degenerative spurring at the glenohumeral james int. Some cystic change of the greater tuberosity. Prominent soft tissue swelling overlying the right shoulder. No acute fracture, subluxation, dislocation is seen. Calcified granuloma lateral right mid lung. Right forearm: No elbow joint effusion. Wrist and elbow articulations appear grossly intact. No acute fracture is se en. There is an oval 6 mm calcific density in the volar proximal forearm soft tissues. Very superfici al in location, either external artifact or a tiny phlebolith. Right knee: Mild anterior suprapatellar soft tissue swelling. No acute fracture, subluxation, dislocation seen. IMPRESSION: 1. Right shoulder: Pronounced soft tissue swelling overlying the right shoulder. Mild AC joint and glenohumeral joint OA. No acute osseous abnormality seen. 2. Right forearm: No acute osseous abnormality seen. 3. Right knee: Mild anterior suprapatellar soft tissue swelling. No acute osseous abnormality seen. [facility], , 12/11/2024 3:23 PM
[2024-12-11 17:19] VITALS: BP 170/82; PULSE 67
== END 2024-12-11 17:19 | disposition home or self-care (01) ==
LOC: EC 13:35
DX: S86.911A Strain of unspecified muscle(s) and tendon(s) at lower leg level, right leg, initial encounter (principal); S40.019A Contusion of unspecified shoulder, initial encounter; S09.90XA Unspecified injury of head, initial encounter; Z87.891 Personal history of nicotine dependence; Z88.5 Allergy status to narcotic agent; Z91.040 Latex allergy status; Z88.8 Allergy status to other drugs, medicaments and biological substances; W18.39XA Other fall on same level, initial encounter
CPT/HCPCS: 70450; 70480; 72125; 99284